=== PATIENT | female | born 1940 | race Caucasian/White ===

== ENCOUNTER 2017-06-30 19:06 | Emergency (ER) | payer OTHER ==
--- OUTSIDE RECORDS SUMMARY | 2017-06-30 19:08 | XMS REPORT | Clinical Summary ---
:1940 Author Organization [facility] Address [address] [place] [address] Care Team Providers Name Role Phone Asked, No Pcp Primary Care Provider Unavailable Allergies No Known Allergies Current Medications Prescription Sig. Disp. Refills Start Date End Date Status gabapentin Take 300 mg by Active (NEURONTIN) 300 mg mouth 2 (two) capsule times a day. lidocaine (LIDODERM) Place 1 patch Active 5 % on the skin every 12 (twelve) hours. Remove & Discard patch within 12 hours or as directed by lisinopril Take 40 mg by Active (PRINIVIL,ZESTRIL) 40 mouth daily. mg tablet clonAZEPAM (KlonoPIN) Take 0.5 mg by Active 0.5 MG tablet mouth nightly as needed for seizures. oxyCODone Take 20 mg by Active (ROXICODONE) 10 MG mouth 2 (two) tablet times a day as needed for moderate pain. pravastatin Take 40 mg by Active (PRAVACHOL) 40 MG mouth daily. tablet magnesium oxide Take 1 tablet 30 tablet 0 12/25/2016 01/24/2017 (MAG-OX) 400 mg (400 mg total) tablet by mouth daily for 30 days. furosemide (LASIX) 40 Take 1 tablet 30 tablet 0 12/25/2016 01/24/2017 mg tablet (40 mg total) by mouth daily for 30 days. aspirin 81 mg Chew 1 tablet 30 tablet 0 12/25/2016 01/24/2017 chewable tablet (81 mg total) daily for 30 days. clopidogrel (PLAVIX) Take 1 tablet 30 tablet 0 12/25/2016 01/24/2017 75 mg tablet (75 mg total) by mouth daily for 30 days. potassium chloride Take 1 capsule 30 capsule 0 12/25/2016 01/24/2017 (MICRO-K) 10 MEQ CR (10 mEq total) capsule by mouth daily for 30 days. spironolactone Take 1 tablet 30 tablet 0 12/25/2016 01/24/2017 (ALDACTONE) 25 MG (25 mg total) tablet by mouth daily for 30 days. DULoxetine (CYMBALTA) Take 1 capsule 30 capsule 0 12/25/2016 01/24/2017 30 MG capsule (30 mg total) by mouth every evening for 30 days. Active Problems Problem Noted Date Gangrene of toe of right foot 12/23/2016 Essential hypertension 12/23/2016 Chronic pain syndrome 12/23/2016 Encounters Date Type Specialty Care Team Description 12/27/2016 Orders Only Cardiovascular Pradhan, PAD (peripheral Jaja artery disease) (Primary Dx) 12/24/2016 Procedure Pass Procedural Cardiology 12/24/2016 Surgery Procedural Cardiology Zafar Vallecillo Aortagram abdomen gifty Isidro MD run off [27520 (CPT)] 12/23/2016 - Hospital Obstetrics and Juan Miguel, Peripheral vascular disease (Primary Dx); 12/25/2016 Encounter Gynecology Harper O. Sr., Mild single current episode of major depressive disorder; Gangrene of toe of right foot; Essential hypertension; Chronic pain syndrome after 06/29/2016 Social History Tobacco Use Types Packs/Day Years Used Date Former Smoker Alcohol Use Drinks/Week oz/Week Comments No Sex Assigned at Date Recorded Not on file Last Filed Vital Signs Vital Sign Reading Time Taken Blood Pressure 150/69 12/25/2016 7:55 AM CDT Pulse 52 12/25/2016 7:55 AM CDT Temperature 37.2 C (98.9 F) 12/25/2016 7:55 AM CDT Respiratory Rate 16 12/25/2016 7:55 AM CDT Oxygen Saturation 98% 12/25/2016 7:55 AM CDT Inhaled Oxygen Concentration - - Weight 57.7 kg (127 lb 1.6 oz) 12/25/2016 6:14 AM CDT Height 165.1 cm (5' 5") 12/23/2016 9:35 PM CDT Body Mass Index 21.15 12/25/2016 6:14 AM CDT Plan of Treatment Health Maintenance Due Date Last Done Comments ZOSTER VACCINE 2000 PNEUMOCOCCAL POLYSACCHARIDE VACCINE AGE 65 AND OVER 2005 PNEUMOCOCCAL-13 2005 INFLUENZA VACCINE 10/19/2017 Implants Implanted Type Area Supervisor Edging Device Expiration Model / Identifier Date Serial / Lot Catheter Supp Quick-Cross Str Tip 5fr 0.035in 150cm 3.1fr - [id number] Cardiovascular N/A: [employer] [id number] / Implanted: 12/24/2016 (Quantity not on file) Implants N/A [employer] / Results XR Foot 3+ Vw Right (12/25/2016 11:44 AM) Specimen Performing Laboratory [facility] [address] [place] [id number] Narrative EXAMINATION:XR FOOT 3VW RIGHT CLINICAL HISTORY:RIGHT foot 5th digit gangrene and 1st digit ingrown nail COMPARISON:None. IMPRESSION: There are erosive changes involving the distal head of the fifth metatarsal and base of proximal phalanx which are compatible with acute osteomyelitis. Overlying soft tissue swelling compatible with cellulitis. [facility]-[id number] Procedure Note Interface, Radiology Results Incoming - 12/25/2016 12:23 PM CDT EXAMINATION: XR FOOT 3 VW RIGHT CLINICAL HISTORY: RIGHT foot 5th digit gangrene and 1st digit ingrown nail COMPARISON: None. IMPRESSION: There are erosive changes involving the distal head of the fifth metatarsal and base of proximal phalanx which are compatible with acute osteomyelitis. Overlying soft tissue swelling compatible with cellulitis. [facility]-[id number] Estimated GFR (12/25/2016 4:25 AM)Only the most recent of2 resultswithin the time period is included. Component Value Ref Range GFR Non Af Amer 54 (A) mL/min/1.73 m2 GFR Af Amer 65 mL/min/1.73 m2 Comment: Chronic kidney disease: <60 mL/min/1.73m2 Kidney failure: <15 mL/min/1.73m2 The estimated GFR is calculated from the IDMS-traceable Modification of Diet in Renal Disease Equation. The accuracy of the calculation is poor when the creatinine is normal. Calculated values >90 mL/min/1.73m2 are not reported. This equation has not been validated in children (<18 years), women, the elderly (>70 years), or ethnic groups other than Caucasians and Americans. Specimen Performing Laboratory Plasma specimen [facility] DEPARTMENT OF PATHOLOGY AND GENOMIC MEDICINE [address] [place] [address] CBC with platelet and differential (12/25/2016 4:25 AM)Only the most recent of2 resultswithin the time period is included. Component Value Ref Range WBC 7.41 4.50 - 11.00 k/uL RBC 4.28 4.20 - 5.50 m/uL HGB 10.8 (L) 12.0 - 16.0 g/dL HCT 34.9 (L) 37.0 - 47.0 % MCV 81.5 (L) 82.0 - 100.0 fL MCH 25.2 (L) 27.0 - 34.0 pg MCHC 30.9 (L) 31.0 - 37.0 g/dL RDW - SD 47.2 37.0 - 55.0 fL MPV 11.4 8.8 - 13.2 fL Platelet count 262 150 - 400 k/uL Nucleated RBC 0.00 /100 WBC Neutrophils 61.9 39.0 - 69.0 % Lymphocytes 27.0 25.0 - 45.0 % Monocytes 9.0 0.0 - 10.0 % Eosinophils 1.5 0.0 - 5.0 % Basophils 0.3 0.0 - 1.0 % Immature granulocytes 0.3Comment: "Immature granulocytes" 0.0 - 1.0 % (promyelocytes, myelocytes, metamyelocytes) Specimen Performing Laboratory Blood [facility] DEPARTMENT OF PATHOLOGY AND GENOMIC MEDICINE [address] [place] [address] Basic metabolic panel (12/25/2016 4:25 AM)Only the most recent of2 resultswithin the time period is included. Component Value Ref Range Sodium 143 135 - 148 mEq/L Potassium 3.5 3.5 - 5.0 mEq/L Chloride 100 98 - 112 mEq/L CO2 30 24 - 31 mEq/L Anion gap 13 7 - 15 mEq/L Comment: Starting from June , anion gap calculation no longer incorporates potassium. Please note the change. BUN 17 8 - 23 mg/dL Creatinine 1.0 (H) 0.5 - 0.9 mg/dL Glucose 91 65 - 99 mg/dL Calcium 9.0 8.8 - 10.2 mg/dL Specimen Performing Laboratory Plasma specimen [facility] DEPARTMENT OF PATHOLOGY AND GENOMIC MEDICINE [address] [place] [address] POC ACT (12/24/2016 4:15 PM)Only the most recent of3 resultswithin the time period is included. Component Value Ref Range Activated clotting time, POC 117 seconds Specimen Performing Laboratory Blood Cv invasive peripheral vascular procedure (12/24/2016 4:10 PM) Specimen Performing Laboratory [address] [address] Procedure Note Zafar Vallecillo MD - 01/17/2017 2:19 PM CDT Urinalysis screen and microscopy, with reflex to culture (12/24/2016 11:45 AM) Component Value Ref Range Specimen site Clean catch Color, UA Straw Appearance, UA Clear Specific gravity, UA 1.006 1.001 - 1.035 pH, UA 5.0 5.0 - 8.5 Protein, UA Negative Negative Glucose, UA Negative Negative Ketones, UA Negative Negative Bilirubin, UA Negative Negative Blood, UA Negative Negative Nitrite, UA Negative Negative Urobilinogen, UA <2.0 <2.0 Leukocyte esterase, UA Negative Negative Epithelial cells, UA <1 /HPF WBC, UA <1 0 - 4 /HPF RBC, UA <1 0 - 2 /HPF Bacteria, UA Few None seen Yeast, UA None seen Yeast with pseudohyphae, UA None seen Hyaline casts, UA 7 /LPF Specimen Performing Laboratory Urine [facility] DEPARTMENT OF PATHOLOGY AND GENOMIC MEDICINE [address] [place] [id number] Urine culture (12/24/2016 11:45 AM) Component Value Ref Range Urine culture SEE COMMENTComment: Bacteriuria screen negative. Specimen Performing Laboratory [facility] DEPARTMENT OF PATHOLOGY AND GENOMIC MEDICINE [address] [place] [address] ECG 12 lead (12/24/2016 8:35 AM) Component Value Ref Range Ventricular rate 45 Atrial rate 45 MT interval 204 QRSD interval 162 QT interval 532 QTC interval 460 P axis 1 57 QRS axis 1 -60 T wave axis 136 EKG impression Sinus bradycardia-Possible Left atrial enlargement-Left axis deviation-Left bundle branch block-Abnormal ECG-No previous ECGs available- Specimen Performing Laboratory [facility] MUSE [address] [place] [address] Potassium level (12/24/2016 5:08 AM) Component Value Ref Range Potassium 3.7 3.5 - 5.0 mEq/L Specimen Performing Laboratory Plasma specimen [facility] DEPARTMENT OF PATHOLOGY AND [facility] [address] [place] [address] Hepatic function panel (12/24/2016 5:08 AM)Only the most recent of2 resultswithin the time period is included. Component Value Ref Range Albumin 3.0 (L) 3.5 - 5.0 g/dL Total bilirubin 0.3 0.0 - 1.2 mg/dL Bilirubin direct <0.2 0.0 - 0.3 mg/dL Alkaline phosphatase 57 35 - 104 U/L Protein 6.0 (L) 6.3 - 8.3 g/dL Comment: 4.6-7.0 g/dL 1 week 4.4-7.6 g/dL 7 months-1year5.1-7.3 g/dL 1-2 years5.6-7.5 g/dL >3 years6.0-8.0 g/dL 18-150 6.3-8.3 g/dL ALT 9 5 - 50 U/L AST 15 10 - 35 U/L Specimen Performing Laboratory Plasma specimen [facility] DEPARTMENT OF PATHOLOGY AND [facility] [address] [place] [address] Thyroid stimulating hormone (12/24/2016 1:40 AM) Component Value Ref Range TSH 2.95 0.27 - 4.20 uIU/mL Specimen Performing Laboratory Plasma specimen [facility] DEPARTMENT OF PATHOLOGY AND [address] [address] T4, free (12/24/2016 1:40 AM) Component Value Ref Range T4, free 1.4 0.9 - 1.7 ng/dL Specimen Performing Laboratory Plasma specimen [facility] DEPARTMENT OF PATHOLOGY AND [facility] [address] [place] [id number] Lipid panel (12/24/2016 1:40 AM) Component Value Ref Range Cholesterol 140 <200 mg/dL Triglycerides 97 <150 mg/dL HDL cholesterol 51 >40 mg/dL LDL cholesterol 74Comment: Result obtained by direct LDL <100 mg/dL measurement Lipid panel interpretation SeeBelow Comment: Total Cholesterol (mg/dL) <200 Desirable 315-198Asioxsoodg-lqlw >=240High Triglycerides (mg/dL) <150 Normal 267-357Jlpqckzpfj-raua 200-499High >=500Very high HDL Cholesterol (mg/dL) <40Low (male) <40Low (female) LDL Cholesterol (mg/dL) <100 Optimal 100-129Near or above optimal [id number]-zicy 160-189High >=190Very high Risk Catergories that modify LDL goals. Risk CatergoriesLDL goal (mg/dL) CHD and CHD risk equivalent<100 (10-year risk >20%) Multiple (2+) risk factors <130 (10-year risk=<20%) 0-1 risk factors <160 (<10-year risk) Defining levels of lipids in metabolic syndrome Triglycerides>=150 mg/dL HDL Cholesterol Men<40 mg/dL Women<40 mg/dL Non-HDL cholesterol is a second target for therapy in persons with high triglycerides (>=200 mg/dL) Specimen Performing Laboratory Plasma specimen [facility] DEPARTMENT OF PATHOLOGY AND GENOMIC MEDICINE [address] [place] [address] Prothrombin time with INR (12/24/2016 1:30 AM) Component Value Ref Range Prothrombin time 14.4 12.0 - 15.0 sec INR 1.1 Comment: The International Normalized Ratio (INR) is a therapeutic monitoring tool for patients who are stable on oral anticoagulant therapy. An INR of 2.0-3.0 is suggested for deep vein thrombosis/pulmonary embolism. Specimen Performing Laboratory Blood [facility] DEPARTMENT OF PATHOLOGY AND GENOMIC MEDICINE [address] [place] [id number] after 06/29/2016 Insurance Payer Benefit Plan / Group Subscriber ID Type Phone Address MEDICARE MEDICARE PART A AND B xxxxxxxxxxx Medicare [place], [place] [employer] xxxxxxxxx [address] [phone] [place], [place] [phone]
[2017-06-30 20:30] LABS: Urine Blood TRACE (NEG); Urine Glucose NEGATIVE (NEG); Urine Protein NEGATIVE (NEG)
[2017-06-30 20:41] LABS: Absolute Monocytes 0.6 K/uL (0.1-1.3); Basophils % 0.5 % (0-1.3); Eosinophils % 1.9 % (0-4.4); Lymphocytes % 29.3 % (15.3-44.8); MCH 21.4 pg (27.0-35.0); MCV 68.9 fL (80-100); MPV 9.3 fL (7.6-11.3); Monocytes % 8.5 % (3.3-12.3); RBC Red Blood Cell Count 4.64 M/uL (3.86-4.86)
[2017-06-30 20:49] LABS: Protime INR 1.2
[2017-06-30] MEDS ORDERED: FENTANYL CITR 100 MCG/2 ML ONE (20:50)
[2017-06-30 20:58] LABS: Potassium 4.2 mEq/L (3.6-5.0)
[2017-06-30 21:04] LABS: Albumin 3.2 g/dL (3.2-5.5); Bilirubin Direct 0.3 mg/dL (0-0.2); Bilirubin Total 0.8 mg/dL (0.3-1.2); Magnesium 1.8 mg/dL (1.8-2.5); Protein, Total 6.6 g/dL (6.0-8.3)
[2017-06-30 21:07] LABS: CKMB Creatine Kinase MB 3.3 ng/ml (0.3-4.0)
--- NOTE | 2017-06-30 21:14 | RAD REPORT ---
EXAM DESCRIPTION: RAD - Chest Single View - 06/30/2017 8:56 pm CLINICAL HISTORY: Cough, shortness of breath COMPARISON: June 05 TECHNIQUE: AP portable chest image was obtained 2040 hours . FINDINGS: No peripheral mass consolidation. Cardiomegaly is present with mild vascular engorgement. Interstitial markings are mildly prominent. No consolidation or mass. Sternotomy wires are in place. No measurable pleural effusion and no pneumothorax. No gross bony abnormality seen. No acute aortic f indings suspected. IMPRESSION: Mild CHF/volume overload similar to comparison.
[2017-06-30 21:59] LABS: Blood Morphology Comment NOTED (NOT SEEN); Hypochromasia 1+; Platelet Estimate ADEQ; Urine White Blood Cell Casts OK
--- NOTE | 2017-06-30 23:00 | EDPHYS ---
Physician Documentation [facility] Name: Nash Burnette Age: 76 yrs Sex: Female : 1940 Arrival Date: 06/30/2017 Time: 19:10 Bed 13 Private MD: ED Physician Yonis Avendano HPI: 06/30 20:19 This 76 yrs old Female presents to ER via Wheelchair with complaints of Ankle snw Swelling. 20:19 The patient presents with swelling, tenderness. The complaints affect the left ankle, snw right ankle. Onset: The symptoms/episode began/occurred gradually, and became persistent. Associated signs and symptoms: Pertinent positives: calf tenderness. Severity of symptoms: in the emergency department the symptoms are unchanged. It is unknown whether or not the patient has had similar symptoms in the past. The patient has not recently seen a physician, the patient's primary care provider is Dr. Dr. Veloz. Pt started taking 80mg Lasix on her own. Historical: - Allergies: 19:32 Morphine; aj - Home Meds: 19:32 carvedilol 3.125 mg Oral tab 1 tab 2 times per day [Active]; clonazepam 0.5 mg Oral tab aj nightly [Active]; gabapentin 400 mg Oral cap 1 cap 3 times per day [Active]; Lasix 40 mg Oral tab 1 tab 2 times per day [Active]; levothyroxine 50 mcg tab 1 tab once daily [Active]; lisinopril 40 mg Oral tab 1 tab once daily [Active]; Plavix 75 mg Oral tab 1 tab once daily [Active]; Nitrostat 0.3 mg SL subl as needed [Active]; simvastatin 40 mg Oral tab 1 tab once daily [Active]; spironolactone 25 mg Oral tab 1 tab once daily [Active]; oxycodone 15 mg Oral TR12 1 tab every 12 hours [Active]; - PMHx: 19:32 CHF; Hypertension; Chronic pain; Bowel obstruction; aj 19:34 Restless Leg Syndrome; aj - PSHx: 19:32 CABG; Back SX; aj - Immunization history:: Adult Immunizations up to date. - Social history:: Smoking status: Patient uses tobacco products, smokes one-half pack cigarettes per day. ROS: 20:19 Constitutional: Negative for fever, chills, and weight loss, Eyes: Negative for injury, snw pain, redness, and discharge, ENT: Negative for injury, pain, and discharge, Neck: Negative for injury, pain, and swelling, Cardiovascular: Negative for chest pain, palpitations, and edema, Respiratory: Negative for shortness of breath, cough, wheezing, and pleuritic chest pain, Abdomen/GI: Negative for abdominal pain, nausea, vomiting, diarrhea, and constipation, Back: Negative for injury and pain, : Negative for injury, bleeding, discharge, and swelling, Skin: Negative for injury, rash, and discoloration, Neuro: Negative for headache, weakness, numbness, tingling, and seizure. 20:19 MS/extremity: Positive for pain, swelling, tenderness, of the bilateral lower extremities. Exam: 20:16 Constitutional: This is a well developed, well nourished patient who is awake, alert, snw and in no acute distress. Head/Face: Normocephalic, atraumatic. Eyes: Pupils equal round and reactive to light, extra-ocular motions intact. Lids and lashes normal. Conjunctiva and sclera are non-icteric and not injected. Cornea within normal limits. Periorbital areas with no swelling, redness, or edema. ENT: Nares patent. No nasal discharge, no septal abnormalities noted. Tympanic membranes are normal and external auditory canals are clear. Oropharynx with no redness, swelling, or masses, exudates, or evidence of obstruction, uvula midline. Mucous membranes moist. Neck: Trachea midline, no thyromegaly or masses palpated, and no cervical lymphadenopathy. Supple, full range of motion without nuchal rigidity, or vertebral point tenderness. No Meningismus. Chest/axilla: Normal chest wall appearance and motion. Nontender with no deformity. No lesions are appreciated. Back: No spinal tenderness. No costovertebral tenderness. Full range of motion. Neuro: Awake and alert, GCS 15, oriented to person, place, time, and situation. Cranial nerves II-XII grossly intact. Motor strength 5/5 in all extremities. Sensory grossly intact. Cerebellar exam normal. Normal gait. Psych: Awake, alert, with orientation to person, place and time. Behavior, mood, and affect are within normal limits. 20:16 Cardiovascular: Rate: normal, Rhythm: regular, Pulses: no pulse deficits are appreciated, Heart sounds: rub, Edema: 3+ edema to level of left ankle, left foot, left toes, right ankle, right foot and right toes, pedal edema, ankle edema, JVD: is noted bilaterally. 20:16 Respiratory: mild respiratory distress is noted, Respirations: shallow respirations, tachypnea, Breath sounds: rales, are located in both bases, decreased breath sounds. 20:16 Abdomen/GI: Inspection: obese scar(s), are noted in the suprapubic area, right lower quadrant and left lower quadrant, Bowel sounds: normal, Palpation: nontender. Vital Signs: 19:34 BP 142 / 88; Pulse 85; Resp 26; Temp 98.4; Pulse Ox 100% on R/A; Weight 63.5 kg; Height aj 5 ft. 3 in. (160.02 cm); Pain 10/10; 20:55 BP 142 / 86; Pulse 75; Resp 16; Pulse Ox 100% on 2 lpm NC; Pain 0/10; ao 22:06 BP 149 / 78; Pulse 77; Resp 24; Pulse Ox 100% on 2 lpm NC; Pain 0/10; ao 19:34 Body Mass Index 24.80 (63.50 kg, 160.02 cm) aj MDM: 19:37 Patient medically screened. snw 22:59 Data reviewed: vital signs, nurses notes. Data interpreted: Pulse oximetry: on room air snw is 88 %. Interpretation: hypoxia. Counseling: I had a detailed discussion with the patient and/or guardian regarding: the historical points, exam findings, and any diagnostic results supporting the discharge/admit diagnosis, the presence of at least one elevated blood pressure reading (>120/80) during this emergency department visit, lab results, radiology results, the need for further work-up and treatment in the hospital. Physician consultation: Marvin Veloz MD was called at 22:00, was contacted at 22:00, regarding admission, Dr. Veloz is no longer pt's PCP - Redd Alex, will call Dr. Weiss (Hospitalist). 23:00 Physician consultation: Miguel Weiss MD was called at 23:00, was contacted at 23:00, snw regarding admission, to the telemetry unit. 06/30 20:16 Order name: Basic Metabolic Panel; Complete Time: 21:08 snw 06/30 20:16 Order name: BNP; Complete Time: 21:59 snw 06/30 20:16 Order name: CBC with Diff; Complete Time: 22:12 snw 06/30 20:16 Order name: Ckmb; Complete Time: 21:08 snw 06/30 20:16 Order name: CPK; Complete Time: 21:08 snw 06/30 20:16 Order name: LFT's; Complete Time: 21:08 snw 06/30 20:16 Order name: Magnesium; Complete Time: 21:08 snw 06/30 20:16 Order name: PT-INR; Complete Time: 20:52 snw 06/30 20:16 Order name: Ptt, Activated; Complete Time: 20:52 snw 06/30 20:16 Order name: Troponin (emerg Dept Use Only); Complete Time: 21:30 snw 06/30 20:16 Order name: XRAY Chest (1 view); Complete Time: 21:15 snw 06/30 20:16 Order name: US Extremity Venou Bilateral snw 06/30 20:27 Order name: Urine Dipstick--Ancillary (enter results); Complete Time: 20:31 em1 06/30 21:59 Order name: CBC Smear Scan; Complete Time: 22:12 EDMS 06/30 20:16 Order name: EKG; Complete Time: 20:16 snw 06/30 20:16 Order name: Cardiac monitoring; Complete Time: 21:12 snw 06/30 20:16 Order name: EKG - Nurse/Tech; Complete Time: 20:20 snw 06/30 20:16 Order name: IV Saline Lock; Complete Time: 20:20 snw 06/30 20:16 Order name: Labs collected and sent; Complete Time: 20:20 snw 06/30 20:16 Order name: O2 Per Protocol; Complete Time: 20:20 snw 06/30 20:16 Order name: O2 Sat Monitoring; Complete Time: 20:20 snw 06/30 20:16 Order name: Urine Dipstick-Ancillary (obtain specimen); Complete Time: 20:29 snw Administered Medications: 20:53 Drug: fentaNYL (PF) 25 mcg Route: IVP; Site: right antecubital; ao 21:30 Follow up: Response: Medication administered at discharge. ao Disposition: 04/13 07:05 Co-signature as Attending Physician, Yonis MARSH I agree with the assessment and [facility] plan of care. Disposition: 07/01/17 00:01 Patient has left against medical advice. - Patients states they are going to Home. - Condition is Stable. Signatures: Dispatcher [employer] Lissette Townsend RN Susan Wilder, RN Yonis Salazar MD MD cha Therrien, Shelly, [facility] NURSE-C [facility] NURSE-Csnw Arie Valiente RN HUGO ao
--- NOTE | 2017-06-30 23:00 | ER ---
Nurse's Notes [facility] Name: Nash Burnette Age: 76 yrs Sex: Female : 1940 Arrival Date: 06/30/2017 Time: 19:10 Bed 13 Private MD: Diagnosis: Presentation: 06/30 19:28 Presenting complaint: Patient states: Bilateral leg and feet swelling that is chronic. aj Patient reports pain is not helped by her Oxycodone she is given by pain management. Transition of care: patient was not received from another setting of care. Onset of symptoms was May 2017. Care prior to arrival: None. 19:28 Method Of Arrival: Wheelchair aj 19:28 Acuity: HELADIO 3 aj Triage Assessment: 19:32 General: Appears in no apparent distress. uncomfortable, Behavior is calm, cooperative, aj appropriate for age. Pain: Complains of pain in right leg and left leg. Neuro: Level of Consciousness is awake, alert, obeys commands, Oriented to person, place, time, situation. Cardiovascular: Denies chest pain. Cardiovascular: Edema is 3+ to left ankle, left foot, left toes, right ankle, right foot and right toes. Respiratory: Airway is patent Respiratory effort is even, unlabored, Respiratory pattern is tachypnea. Derm: Skin is intact, is healthy with good turgor, Skin is pink, warm \T\ dry. normal. Musculoskeletal:. Historical: - Allergies: 19:32 Morphine; aj - Home Meds: 19:32 carvedilol 3.125 mg Oral tab 1 tab 2 times per day [Active]; clonazepam 0.5 mg Oral tab aj nightly [Active]; gabapentin 400 mg Oral cap 1 cap 3 times per day [Active]; Lasix 40 mg Oral tab 1 tab 2 times per day [Active]; levothyroxine 50 mcg tab 1 tab once daily [Active]; lisinopril 40 mg Oral tab 1 tab once daily [Active]; Plavix 75 mg Oral tab 1 tab once daily [Active]; Nitrostat 0.3 mg SL subl as needed [Active]; simvastatin 40 mg Oral tab 1 tab once daily [Active]; spironolactone 25 mg Oral tab 1 tab once daily [Active]; oxycodone 15 mg Oral TR12 1 tab every 12 hours [Active]; - PMHx: 19:32 CHF; Hypertension; Chronic pain; Bowel obstruction; aj 19:34 Restless Leg Syndrome; aj - PSHx: 19:32 CABG; Back SX; aj - Immunization history:: Adult Immunizations up to date. - Social history:: Smoking status: Patient uses tobacco products, smokes one-half pack cigarettes per day. Screenin:43 Abuse screen: Denies threats or abuse. Denies injuries from another. Nutritional ao screening: No deficits noted. Tuberculosis screening: No symptoms or risk factors identified. Fall Risk Ambulatory Aid- Crutches/Cane/Walker (15 pts). Assessment: 19:45 General: Appears in no apparent distress. comfortable, Behavior is calm, cooperative, ao appropriate for age. Pain: Complains of pain in right leg and left leg Pain currently is 8 out of 10 on a pain scale. Neuro: Level of Consciousness is awake, alert, obeys commands, Oriented to person, place, time, situation, Appropriate for age Moves all extremities. Speech is normal, Facial symmetry appears normal. Cardiovascular: Heart tones S1 S2. Respiratory: Airway is patent Respiratory effort is even, unlabored, Respiratory pattern is regular. GI: Abdomen is obese. : No signs and/or symptoms were reported regarding the genitourinary system. EENT: No signs and/or symptoms were reported regarding the EENT system. Derm: No signs and/or symptoms reported regarding the dermatologic system. Musculoskeletal: Range of motion: limited in all extremities. 20:18 Reassessment: Patient received o2 by NC. ao 20:45 Reassessment: Patient appears in no apparent distress at this time. Patient and/or ao family updated on plan of care and expected duration. Pain level reassessed. Patient is alert, oriented x 3, equal unlabored respirations, skin warm/dry/pink. Waiting on lab work results. 21:27 Reassessment: Received a lab alert trop 0.96. Claudia HEALTH AND HUMAN PERFORMANCE PROFESSOR was notified. ao 22:06 Reassessment: Patient appears in no apparent distress at this time. Patient and/or ao family updated on plan of care and expected duration. Pain level reassessed. Patient is alert, oriented x 3, equal unlabored respirations, skin warm/dry/pink. Patient states that she feel better and would like to go home. 23:10 Reassessment: Patient appears in no apparent distress at this time. Patient and/or ao family updated on plan of care and expected duration. Pain level reassessed. Patient is alert, oriented x 3, equal unlabored respirations, skin warm/dry/pink. Waiting on room assigment. 23:30 Reassessment: RYLEE Taylor at bedside talking to patient. Patient want to leave AMA. ao 07/01 00:00 Reassessment: Patient left AMA before getting admitted. AMA form was signed and patient ao was instructed to comeback to the ER if any problems occur. Vital Signs: 06/30 19:34 BP 142 / 88; Pulse 85; Resp 26; Temp 98.4; Pulse Ox 100% on R/A; Weight 63.5 kg; Height aj 5 ft. 3 in. (160.02 cm); Pain 10/10; 20:55 BP 142 / 86; Pulse 75; Resp 16; Pulse Ox 100% on 2 lpm NC; Pain 0/10; ao 22:06 BP 149 / 78; Pulse 77; Resp 24; Pulse Ox 100% on 2 lpm NC; Pain 0/10; ao 19:34 Body Mass Index 24.80 (63.50 kg, 160.02 cm) aj ED Course: 19:10 Patient arrived in ED. al2 19:30 Triage completed. aj 19:34 Arm band placed on right wrist. Patient placed. aj 19:37 Hannah Taylor FNP-C is PHCP. snw 19:37 Yonis Avendano MD is Attending Physician. snw 20:15 Inserted saline lock: 22 gauge in right antecubital area, using aseptic technique. ao ,using aseptic technique. HUGO Law Blood collected. 20:17 Arie Valiente, RN is Primary Nurse. ao 20:28 Basic Metabolic Panel Sent. jb5 20:28 BNP Sent. jb5 20:28 CBC with Diff Sent. jb5 20:29 Ckmb Sent. jb5 20:29 CPK Sent. jb5 20:29 LFT's Sent. jb5 20:29 Magnesium Sent. jb5 20:29 PT-INR Sent. jb5 20:29 Ptt, Activated Sent. jb5 20:29 Troponin (emerg Dept Use Only) Sent. jb5 20:29 XRAY Chest (1 view) Sent. jb5 20:55 X-ray completed. Portable x-ray completed in exam room. Patient tolerated procedure kc2 well. 20:56 XRAY Chest (1 view) In Process Unspecified. EDMS 21:16 US Extremity Venou Bilateral In Process Unspecified. EDMS 21:16 Ultrasound completed. Patient tolerated poorly. cy 22:58 Miguel Weiss MD is Hospitalizing Provider. snw 23:43 No provider procedures requiring assistance completed. IV discontinued, intact, ao bleeding controlled, No redness/swelling at site. Pressure dressing applied. 23:45 Patient has correct armband on for positive identification. ao Administered Medications: 20:53 Drug: fentaNYL (PF) 25 mcg Route: IVP; Site: right antecubital; ao 21:30 Follow up: Response: Medication administered at discharge. ao Outcome: 22:59 Decision to Hospitalize by Provider. snw 23:44 AMA AMA form signed ao 23:44 Condition: stable 23:44 Discharge instructions given to patient, Instructed on Patient left AMA. Patient has been advised to comeback to the ER if any problem occur. 07/01 00:01 Patient left the ED. ao Signatures: Dispatcher [employer] Susan Givens, RN RN Hannah Marino, INTERNAL COMBUSTION ENGINE SUBASSEMBLER-C INTERNAL COMBUSTION ENGINE SUBASSEMBLER-Csnw Arie Valiente, RN Celeste Kilpatrick kc2 Tabatha Gutierrez jbShira Kaufman Angelica al2
--- NOTE | 2017-07-01 08:19 | RAD REPORT ---
EXAM DESCRIPTION: VAS - Extrem Venous W Compress Bladimir - 06/30/2017 9:16 pm CLINICAL HISTORY: Leg pain and swelling COMPARISON: DVT study June 06 TECHNIQUE: Real-time sonographic evaluation of the bilateral lower extremity deep venous systems was performed. FINDINGS: Exam was limited. Patient was moving throughout the examination and was in significant cezar n. Normal compressibility, flow augmentation, phasic flow and spontaneous flow are identified in the lef t and right lower extremity deep venous systems. No filling defects within the deep venous system of either lower extremity. Thrombus is again identified in the left greater saphenous vein. This was difficult to fully evaluate due to the patient's pain and motion. Pattern is generally similar to the May examination with no evidence to suspect propagation. Interstitial edema pattern is seen with no focal or drainable fluid collection. IMPRESSION: No DVT in either lower extremity. No change to the partially thrombosed left greater saphenous vein. Pattern is similar to the June 06 study with no propagation suspected.
--- NOTE | 2017-07-03 22:48 | EKG ---
Test Date: 2017-06-30 Test Time: 19:49:44 [employer] Crewmember: COLIN MEASUREMENT RESULTS: Intervals: Rate: 72 MD: 176 QRSD: 156 QT: 442 QTc: 483 [place]: P: 54 MD: 176 QRS: 141 T: 26 INTERPRETIVE STATEMENTS: Normal sinus rhythm Possible Left atrial enlargement Left bundle branch block Abnormal ECG Compared to ECG 06/05/2017 18:58:06 Left-axis deviation no longer present Electronically Signed On 07-03-17 22:47:34 CDT by Gregor Rodrigues
== END 2017-06-30 23:58 | disposition left against medical advice (07) ==
LOC: ER 19:06 → UNDOADMOB 23:06 → ERHOLD 23:06 → UNDODISOB 23:58 → ER 23:58
DX: M25.473 Effusion, unspecified ankle (principal); I11.0 Hypertensive heart disease with heart failure; I50.9 Heart failure, unspecified; F17.210 Nicotine dependence, cigarettes, uncomplicated; Z79.01 Long term (current) use of anticoagulants; Z88.5 Allergy status to narcotic agent; Z95.1 Presence of aortocoronary bypass graft
CPT/HCPCS: 36415; 71045; 80048; 80076; 81003; 82550; 82553; 83735; 83880; 84484; 85025; 85610; 85730; 93005; 93970; 96374; 99284; G0378; J3010

== ENCOUNTER 2017-07-03 00:06 | Inpatient (IN) | payer OTHER ==
--- OUTSIDE RECORDS SUMMARY | 2017-07-03 00:09 | XMS REPORT | Clinical Summary ---
:1940 Author Organization [facility] Address [address] [place] [address] Care Team Providers Name Role Phone Asked, [...] Aortagram abdomen gifty Isidro MD run off [26280 (CPT)] 12/23/2016 - Hospital Obstetrics and Juan Miguel, Peripheral vascular disease (Primary Dx); 12/25/2016 Encounter Gynecology Sidney O. Sr., Mild single current episode of major depressive disorder; Gangrene of toe of right foot; Essential hypertension; Chronic pain syndrome after 07/02/2016 Social History Tobacco Use Types Packs/Day Years [...] INFLUENZA VACCINE 10/19/2017 Implants Implanted Type Area Retention Representative Device Expiration Model / Identifier Date Serial / Lot Catheter Supp Quick-Cross Str Tip 5fr 0.035in 150cm 3.1fr - [id number] Cardiovascular N/A: [employer] [id number] / Implanted: 12/24/2016 (Quantity not on file) Implants [employer] / Results XR Foot 3+ Vw Right (12/25/2016 11:44 AM) Specimen Performing Laboratory [facility] [address] [place] [address] Narrative EXAMINATION:XR FOOT 3VW RIGHT CLINICAL HISTORY:RIGHT foot 5th digit gangrene and 1st digit ingrown nail COMPARISON:None. IMPRESSION: There are erosive changes involving the distal head of the fifth metatarsal and base of proximal phalanx which are compatible with acute osteomyelitis. Overlying soft tissue swelling compatible with cellulitis. [facility]-[id number] Procedure Note Interface, Radiology Results Incoming - 12/25/2016 12:23 PM CDT EXAMINATION: XR FOOT 3 VW RIGHT CLINICAL HISTORY: RIGHT foot 5th digit gangrene and 1st digit ingrown nail COMPARISON: None. IMPRESSION: There are erosive changes involving the distal head of the fifth metatarsal and base of proximal phalanx which are compatible with acute osteomyelitis. Overlying soft tissue swelling compatible with cellulitis. [facility]-[id number] Estimated GFR (12/25/2016 4:25 AM)Only the most [...] and Americans. Specimen Performing Laboratory Plasma specimen [facility] DEPARTMENT OF PATHOLOGY AND GENOMIC MEDICINE [address] [place] [address] CBC with platelet and differential (12/25/2016 4:25 [...] (promyelocytes, myelocytes, metamyelocytes) Specimen Performing Laboratory Blood [facility]PARTMENT OF PATHOLOGY AND GENOMIC MEDICINE [address] [place] [address] Basic metabolic panel (12/25/2016 4:25 AM)Only the [...] 10.2 mg/dL Specimen Performing Laboratory Plasma specimen [facility]PARTMENT OF PATHOLOGY AND GENOMIC MEDICINE [address] [place] [address] POC ACT (12/24/2016 4:15 PM)Only the most recent of3 resultswithin the time period is included. Component Value Ref Range Activated clotting time, POC 117 seconds Specimen Performing Laboratory Blood Cv invasive peripheral vascular procedure (12/24/2016 4:10 PM) Specimen Performing Laboratory [address] [address] Procedure Note Zafar Vallecillo MD - 01/17/2017 [...] UA 7 /LPF Specimen Performing Laboratory Urine [facility] DEPARTMENT OF PATHOLOGY AND GENOMIC MEDICINE [address] [place] [address] Urine culture (12/24/2016 11:45 AM) Component Value Ref Range Urine culture SEE COMMENTComment: Bacteriuria screen negative. Specimen Performing Laboratory [facility]PARTMENT OF PATHOLOGY AND GENOMIC MEDICINE [address] [place] [address] ECG 12 lead (12/24/2016 8:35 AM) Component Value Ref Range Ventricular rate 45 Atrial rate 45 WV interval 204 QRSD interval 162 QT interval 532 QTC interval 460 P axis 1 57 QRS axis 1 -60 T wave axis 136 EKG impression Sinus bradycardia-Possible Left atrial enlargement-Left axis deviation-Left bundle branch block-Abnormal ECG-No previous ECGs available- Specimen Performing Laboratory [facility] MUSE [address] [place] [address] Potassium level (12/24/2016 5:08 AM) Component Value Ref Range Potassium 3.7 3.5 - 5.0 mEq/L Specimen Performing Laboratory Plasma specimen [facility] DEPARTMENT OF PATHOLOGY AND [facility] [address] [place] [address] Hepatic function panel (12/24/2016 5:08 AM)Only the [...] 35 U/L Specimen Performing Laboratory Plasma specimen [facility] DEPARTMENT OF PATHOLOGY AND [facility] [address] [place] [address] Thyroid stimulating hormone (12/24/2016 1:40 AM) Component Value Ref Range TSH 2.95 0.27 - 4.20 uIU/mL Specimen Performing Laboratory Plasma specimen [facility] DEPARTMENT OF PATHOLOGY AND [address] [address] T4, free (12/24/2016 1:40 AM) Component Value Ref Range T4, free 1.4 0.9 - 1.7 ng/dL Specimen Performing Laboratory Plasma specimen [facility] DEPARTMENT OF PATHOLOGY AND [facility] [address] [place] [address] Lipid panel (12/24/2016 1:40 AM) Component Value Ref Range Cholesterol 140 <200 mg/dL Triglycerides 97 <150 mg/dL HDL cholesterol 51 >40 mg/dL LDL cholesterol 74Comment: Result obtained by direct LDL <100 mg/dL measurement Lipid panel interpretation SeeBelow Comment: Total Cholesterol (mg/dL) <200 Desirable [id number]-afmz >=240High Triglycerides (mg/dL) <150 Normal 601-989Wjrtvabdrw-cmos 200-499High >=500Very high HDL Cholesterol (mg/dL) <40Low (male) <40Low (female) LDL Cholesterol (mg/dL) <100 Optimal 100-129Near or above optimal [phone]-rmbz 160-189High >=190Very high Risk Catergories that modify [...] (>=200 mg/dL) Specimen Performing Laboratory Plasma specimen [facility] DEPARTMENT OF PATHOLOGY AND GENOMIC MEDICINE [address] [place] [address] Prothrombin time with INR (12/24/2016 1:30 AM) Component Value Ref Range Prothrombin time 14.4 12.0 - 15.0 sec INR 1.1 Comment: The International Normalized Ratio (INR) is a therapeutic monitoring tool for patients who are stable on oral anticoagulant therapy. An INR of 2.0-3.0 is suggested for deep vein thrombosis/pulmonary embolism. Specimen Performing Laboratory Blood [facility] DEPARTMENT OF PATHOLOGY AND GENOMIC MEDICINE [address] [place] [address] after 07/02/2016 Insurance Payer Benefit Plan / Group Subscriber ID Type Phone Address MEDICARE MEDICARE PART A AND B xxxxxxxxxxx Medicare [place], [place] [employer] xxxxxxxxx Commercial Guarantor Name Account Type Relation to Date of Phone Billing Patient Address MICHELLE KATHLEEN Personal/Family Spouse 1940 Home: [address] [place] [address] dr RAY [phone] [place], [place] [address]
[2017-07-03] MEDS ORDERED: FUROSEMIDE 100 MG/10 ML VIAL IV ONE (00:49)
[2017-07-03 01:14] LABS: Protime INR 1.2
[2017-07-03 01:15] LABS: Potassium 3.6 mEq/L (3.6-5.0)
[2017-07-03 01:16] LABS: Absolute Lymphocytes (CBC) 1.7 K/uL (0.7-4.9); Absolute Monocytes 0.6 K/uL (0.1-1.3); Absolute Neutrophil 4.3 K/uL (1.8-8.0); Basophils % 0.8 % (0-1.3); Hematocrit 31.7 % (36.0-45.0); Lymphocytes % 24.6 % (15.3-44.8); MCH 20.6 pg (27.0-35.0); MCV 69.7 fL (80-100); MPV 9.3 fL (7.6-11.3); Monocytes % 9.4 % (3.3-12.3); RBC Red Blood Cell Count 4.55 M/uL (3.86-4.86)
[2017-07-03] MEDS ORDERED: DIPHENHYDRAMINE 50 MG/ML VIAL ONE (01:31)
--- NOTE | 2017-07-03 01:33 | EDPHYS ---
Physician Documentation [facility] Name: Nash Burnette Age: 76 yrs Sex: Female : 1940 Arrival Date: 07/03/2017 Time: 00:07 Bed 6 Private MD: ED Physician Jam De La Cruz HPI: 07/03 02:00 This 76 yrs old Female presents to ER via Ambulatory with complaints of gs Abdominal Pain, Back Pain, Feet Swelling. 02:00 The patient presents with swelling. The complaints affect the right leg and left leg. gs Onset: The symptoms/episode began/occurred 1 week(s) ago. Modifying factors: The symptoms are alleviated by nothing. the symptoms are aggravated by nothing. Associated signs and symptoms: Pertinent positives: sob, also chronic back and abdominal pain. Severity of symptoms: At their worst the symptoms were moderate, in the emergency department the symptoms are unchanged. The patient has experienced similar episodes in the past, several times. The patient has been recently seen at the [facility] Emergency Department, this week, left ama yest. Historical: - Allergies: 00:15 Morphine; tl2 - Home Meds: 00:15 carvedilol 3.125 mg Oral tab 1 tab 2 times per day [Active]; clonazepam 0.5 mg Oral tab tl2 nightly [Active]; gabapentin 400 mg Oral cap 1 cap 3 times per day [Active]; Lasix 40 mg Oral tab 1 tab 2 times per day [Active]; levothyroxine 50 mcg tab 1 tab once daily [Active]; lisinopril 40 mg Oral tab 1 tab once daily [Active]; Nitrostat 0.3 mg SL subl as needed [Active]; oxycodone 15 mg Oral TR12 1 tab every 12 hours [Active]; Plavix 75 mg Oral tab 1 tab once daily [Active]; simvastatin 40 mg Oral tab 1 tab once daily [Active]; spironolactone 25 mg Oral tab 1 tab once daily [Active]; - PMHx: 00:15 bowel obstruction; CHF; Chronic pain; Hypertension; restless leg syndrome; tl2 - Immunization history:: Adult Immunizations up to date. - Social history:: Smoking status: Patient/guardian denies using tobacco. ROS: 02:00 Unable to obtain ROS due to baseline dementia. gs Exam: 02:00 Head/Face: Normocephalic, atraumatic. Eyes: Pupils equal round and reactive to light, gs extra-ocular motions intact. Lids and lashes normal. Conjunctiva and sclera are non-icteric and not injected. Cornea within normal limits. Periorbital areas with no swelling, redness, or edema. ENT: Nares patent. No nasal discharge, no septal abnormalities noted. Tympanic membranes are normal and external auditory canals are clear. Oropharynx with no redness, swelling, or masses, exudates, or evidence of obstruction, uvula midline. Mucous membranes moist. Neck: Trachea midline, no thyromegaly or masses palpated, and no cervical lymphadenopathy. Supple, full range of motion without nuchal rigidity, or vertebral point tenderness. No Meningismus. Chest/axilla: Normal chest wall appearance and motion. Nontender with no deformity. No lesions are appreciated. Cardiovascular: Regular rate and rhythm with a normal S1 and S2. No gallops, murmurs, or rubs. Normal PMI, no JVD. No pulse deficits. Respiratory: Lungs have equal breath sounds bilaterally, clear to auscultation and percussion. No rales, rhonchi or wheezes noted. No increased work of breathing, no retractions or nasal flaring. Abdomen/GI: Soft, non-tender, with normal bowel sounds. No distension or tympany. No guarding or rebound. No evidence of tenderness throughout. Back: No spinal tenderness. No costovertebral tenderness. Full range of motion. 02:00 Skin: Warm, dry with normal turgor. Normal color with no rashes, no lesions, and no evidence of cellulitis. MS/ Extremity: Pulses equal, no cyanosis. Neurovascular intact. Full, normal range of motion. Neuro: Awake and alert, GCS 15, oriented to person, place, time, and situation. Cranial nerves II-XII grossly intact. Motor strength 5/5 in all extremities. Sensory grossly intact. Cerebellar exam normal. Normal gait. 02:00 Constitutional: The patient appears alert, awake. 02:00 Cardiovascular: Edema: 3+ edema to level of left midcalf, left ankle, right midcalf and right ankle. 02:00 ECG was reviewed by the Attending Physician. Vital Signs: 00:23 BP 142 / 67; Pulse 68; Resp 17; Temp 98.3; Pulse Ox 100% ; bp 01:48 BP 128 / 74; Pulse 81; Resp 13; Pulse Ox 100% ; bp 02:33 Pulse 86; Resp 20; Pulse Ox 95% ; bp 02:33 PT RESISTING BP MEASUREMENT bp MDM: 00:22 Patient medically screened. gs 02:00 Differential diagnosis: chf,mi,pedal edema,renal failure. Data reviewed: vital signs, gs nurses notes, old medical records, and as a result, I will admit patient. 07/03 01:00 Order name: Basic Metabolic Panel; Complete Time: 01:55 EDMS 07/03 01:00 Order name: Troponin (Emerg Dept Use Only); Complete Time: 01:55 EDMS 07/03 00:29 Order name: EKG; Complete Time: 01:03 gs 07/03 01:00 Order name: CBC with Automated Diff EDMS 07/03 01:00 Order name: Protime (+INR); Complete Time: 01:55 EDMS 07/03 01:19 Order name: Manual Differential EDMS 07/03 00:29 Order name: Cardiac monitoring; Complete Time: 00:37 gs 07/03 00:29 Order name: EKG - Nurse/Tech; Complete Time: 00:52 gs 07/03 00:29 Order name: IV Saline Lock; Complete Time: 00:38 07/03 00:29 Order name: Labs collected and sent; Complete Time: 00:38 gs 07/03 00:29 Order name: O2 Per Protocol; Complete Time: 00:38 gs 07/03 00:29 Order name: O2 Sat Monitoring; Complete Time: 00:38 gs EC:00 Rate is 68 beats/min. Rhythm is regular. RI interval is normal. QRS interval is normal. gs T waves are Normal. No ST changes noted. Clinical impression: NSR w/ Non-specific ST/T Changes. Administered Medications: 00:53 Drug: Lasix 60 mg Route: IVP; Site: right forearm; bp 01:35 Follow up: Response: No adverse reaction bp 01:36 Drug: Benadryl 25 mg Route: IVP; Site: right antecubital; bp 01:49 Follow up: Response: No change in condition bp 02:04 Drug: HALdol (as decanoate) 2.5 mg Route: IM; Site: right deltoid; bp 02:04 Follow up: Response: No adverse reaction; No change in condition bp 02:04 Drug: D50W 25 ml Route: IVP; Site: right antecubital; bp 02:04 Follow up: Response: No adverse reaction bp Disposition: 07/03/17 01:32 Hospitalization ordered by Lev Lopez for Observation. Preliminary diagnosis is Acute combined systolic (congestive) and diastolic (congestive) heart failure. - Bed requested for Telemetry/MedSurg (observation). - Status is Observation. bp - Condition is Stable. - Problem is an acute exacerbation. - Symptoms have improved. UTI on Admission? No Critical care time excluding procedures: 02:00 Critical care time: Bedside Care: 10 minutes, Consultation: 10 minutes, Family gs Intervention: 10 minutes. Total time: 30 minutes Signatures: Dispatcher [employer] Radha Morocho, RN RN Gerri Soliman RN RN tl2 Jam De La Cruz MD MD gs Peltier, Brian, RN RN bp Corrections: (The following items were deleted from the chart) 01:44 01:03 BASIC METABOLIC PANEL+C.LAB.BRZ ordered. EDMS EDMS 01:44 01:03 CBC+H.LAB.BRZ ordered. EDMS EDMS 01:44 01:03 PROTIME (+INR)+COAG.LAB.BRZ ordered. EDMS EDMS 01:44 01:03 TROPONIN (EMERG DEPT USE ONLY)+C.LAB.BRZ ordered. EDMS EDMS
--- NOTE | 2017-07-03 01:33 | ER ---
Nurse's Notes [facility] Name: Nash Burnette Age: 76 yrs Sex: Female : 1940 Arrival Date: 07/03/2017 Time: 00:07 Bed 6 Private MD: Diagnosis: Acute combined systolic (congestive) and diastolic (congestive) heart failure Presentation: 07/03 00:20 Presenting complaint: Child states: HER LEGS AND HER STOMACH ARE MORE SWOLLEN. bp Transition of care: patient was not received from another setting of care. Onset of symptoms was June 26, 2017. Care prior to arrival: None. 00:20 Method Of Arrival: Ambulatory bp 00:20 Acuity: HELADIO 3 bp Triage Assessment: 00:20 General: Appears distressed, comfortable, Behavior is cooperative, appropriate for age, bp anxious. Pain: Complains of pain in abdomen, right leg and left leg. EENT: No deficits noted. Neuro: Level of Consciousness is awake, alert, obeys commands, Oriented to person, place, time, situation, Appropriate for age. Cardiovascular: Rhythm is sinus rhythm. Respiratory: Airway is patent Respiratory effort is even, unlabored, Respiratory pattern is regular, symmetrical. GI: Abdomen is POST SURGICAL, TISSUE MACERATION 2/2 FISTULA DRAINAGE. : No signs and/or symptoms were reported regarding the genitourinary system. Derm: No deficits noted. Musculoskeletal: Circulation, motion, and sensation intact. Range of motion: intact in all extremities. Historical: - Allergies: 00:15 Morphine; tl2 - Home Meds: 00:15 carvedilol 3.125 mg Oral tab 1 tab 2 times per day [Active]; clonazepam 0.5 mg Oral tab tl2 nightly [Active]; gabapentin 400 mg Oral cap 1 cap 3 times per day [Active]; Lasix 40 mg Oral tab 1 tab 2 times per day [Active]; levothyroxine 50 mcg tab 1 tab once daily [Active]; lisinopril 40 mg Oral tab 1 tab once daily [Active]; Nitrostat 0.3 mg SL subl as needed [Active]; oxycodone 15 mg Oral TR12 1 tab every 12 hours [Active]; Plavix 75 mg Oral tab 1 tab once daily [Active]; simvastatin 40 mg Oral tab 1 tab once daily [Active]; spironolactone 25 mg Oral tab 1 tab once daily [Active]; - PMHx: 00:15 bowel obstruction; CHF; Chronic pain; Hypertension; restless leg syndrome; tl2 - Immunization history:: Adult Immunizations up to date. - Social history:: Smoking status: Patient/guardian denies using tobacco. Screenin:25 Abuse screen: Denies threats or abuse. Denies injuries from another. Nutritional bp screening: No deficits noted. Tuberculosis screening: No symptoms or risk factors identified. Fall Risk None identified. Assessment: 00:24 General: SEE TRIAGE NOTE. 76YO WF P/W BLE EDEMA AND ABD PAIN/DISTENSION 2/2 CHRONIC bp FISTULA. 01:06 Reassessment: PT SEEN BY ADMIT MD. ADMIT PENDING. PT AGITATED/ANXIOUS, REQUESTING bp MEDICATION TO PUT HER TO SLEEP. MD AWARE. 01:23 Reassessment: pt instructed on need for admit and agrees to be admitted. bb 01:37 Reassessment: PT INCREASINGLY AGITATED, REQUIRING FREQUENT REDIRECTION TO STAY IN BED, bp AO4 BUT NON-COMPLIANT. MD NOTIFIED. 01:48 Reassessment: ADMIT IN PROCESS, PT CONTINUES TO BE AGITATED DESPITE ORDERED MEDICATION. bp 02:28 Reassessment: ADMIT ON HOLD PENDING ADMIT MD CONFERENCE WITH FAMILY. bp 03:06 GI: Bowel sounds COMPLEX POST-SURGICAL ANATOMY. bp Vital Signs: 00:23 BP 142 / 67; Pulse 68; Resp 17; Temp 98.3; Pulse Ox 100% ; bp 01:48 BP 128 / 74; Pulse 81; Resp 13; Pulse Ox 100% ; bp 02:33 Pulse 86; Resp 20; Pulse Ox 95% ; bp 02:33 PT RESISTING BP MEASUREMENT bp ED Course: 00:07 Patient arrived in ED. do 00:14 Jam De La Cruz MD is Attending Physician. gs 00:20 Daniel Vegas, RN is Primary Nurse. bp 00:21 Triage completed. bp 00:24 Arm band placed on. bp 00:25 Patient has correct armband on for positive identification. Bed in low position. Call bp light in reach. Side rails up X2. Adult w/ patient. 00:43 Inserted saline lock: 22 gauge in right antecubital area, using aseptic technique. jb5 Blood collected. 01:32 Lev Lopez MD is Hospitalizing Provider. gs 03:06 No provider procedures requiring assistance completed. Patient admitted, IV remains in bp place. Administered Medications: 00:53 Drug: Lasix 60 mg Route: IVP; Site: right forearm; bp 01:35 Follow up: Response: No adverse reaction bp 01:36 Drug: Benadryl 25 mg Route: IVP; Site: right antecubital; bp 01:49 Follow up: Response: No change in condition bp 02:04 Drug: HALdol (as decanoate) 2.5 mg Route: IM; Site: right deltoid; bp 02:04 Follow up: Response: No adverse reaction; No change in condition bp 02:04 Drug: D50W 25 ml Route: IVP; Site: right antecubital; bp 02:04 Follow up: Response: No adverse reaction bp Outcome: 01:32 Decision to Hospitalize by Provider. 03:06 Admitted to Tele accompanied by tech, via stretcher, room 204, with chart, Report bp called to LETY ARIAS 03:07 Condition: stable bp 03:07 Instructed on the need for admit. 03:43 Patient left the ED. bp Signatures: Elyssa Fisher RN RN Rosalie Young Taylor, RN RN tl2 Tabatha Gutierrez jb5 Jam De La Cruz MD MD gs Peltier, Brian, RN RN bp Corrections: (The following items were deleted from the chart) 02:34 00:23 BP 142 / 67; Pulse 68bpm; Resp 17bpm; Temp 98.3F; bp bp 02:36 02:33 Pulse 86bpm; Resp 20bpm; Pulse Ox 95%; bp bp
[2017-07-03] MEDS ORDERED: HALOPERIDOL LACT 5 MG/ML INJ ONE (01:55)
[2017-07-03] MEDS ORDERED: D50W 25 GM/50 ML SYRINGE IV ONE (01:56)
[2017-07-03] MEDS ORDERED: TRAMADOL HCL 50 MG TAB PO PRN (03:00)
[2017-07-03] MEDS ORDERED: ACETAMINOPHEN 500 MG TAB PO PRN (03:00)
[2017-07-03] MEDS ORDERED: ONDANSETRON 4 MG/2 ML VIAL IV PRN (03:00)
--- NOTE | 2017-07-03 03:05 | P.HP ---
Certification for Inpatient Patient admitted to: Observation With expected LOS: <2 Midnights Practitioner: I am a practitioner with admitting privileges, knowledge of patient current condition, hospital course, and medical plan of care. Services: Services provided to patient in accordance with Admission requirements found in Title 42 Section 412.3 of the Code of Federal Regulations Patient History Date of Service: 07/03/17 Reason for admission: CHF exacerbation History of Present Illness: Ms Burnette is a 76 years old woman with history of CAD, s/p CABG, chronic systolic CHF, last ECHO recorder here shows EF 21%, chronic pain syndrome, on opioid medications, who came to ED complaining of LE extremity swelling and pain. She is confused and not able to provide a coherent history. The patient denied chest pain. She came to the hospital with a couple who apparently live with her. Her son came to ED as well, who is the POA, and he said that the patient is confuse and has hallucinations because the medication she is, specially opioids. Initially she singed AMA form to go home, but she was very confused, and finally decided to stay. Allergies Morphine Adverse Reaction (Mild, Uncoded 06/06/17 00:39) Shortness of breath Home Medications: Carvedilol [Coreg] 3.125 mg PO BID 03/28/17 Clopidogrel Bisulfate [Plavix*] 1 tab PO DAILY 03/28/17 Gabapentin [Neurontin] 400 mg PO TID 03/28/17 Levothyroxine [Synthroid] 125 mcg PO DAILY 03/28/17 Simvastatin 40 mg PO DAILY 03/28/17 Spironolactone 50 mg PO DAILY 03/28/17 Clonazepam [Klonopin] 0.5 mg PO BEDTIME 06/06/17 Duloxetine [Cymbalta Dalayed Release Pellets] 60 mg PO DAILY 06/06/17 Furosemide 80 mg PO DAILY #30 tablet 06/06/17 Levocetirizine Dihydrochloride [Xyzal] 5 mg PO DAILY 06/06/17 Lisinopril 40 mg PO DAILY 06/06/17 Oxycodone HCl [Oxyir] 20 mg PO BID 06/06/17 Ropinirole HCl [Requip] 1 mg PO TID 06/06/17 - Past Medical/Surgical History Diabetic: No -: Congestive heart failure -: Coronary artery disease -: Neuropathy -: Restless leg syndrome -: Dementia -: Coronary artery bypass grafting times 2 -: femoral bi pass (right leg) - Family History Family History: Reviewed- Non-Contributory - Social History Alcohol use: No CD- Drugs: No Caffeine use: Yes Place of Residence: Home Review of Systems 10-point ROS is otherwise unremarkable Physical Examination - Physical Exam General: Alert, Moderate distress (due to LE pain) HEENT: Atraumatic, PERRLA, Mucous membr. moist/pink, EOMI, Sclerae nonicteric Neck: Supple, 2+ carotid pulse no bruit, No LAD Respiratory: Clear to auscultation bilaterally, Normal air movement Cardiovascular: Regular rate/rhythm, Normal S1 S2 Gastrointestinal: Normal bowel sounds, No tenderness Musculoskeletal: Swelling (bilateral LE edema 3+), Erythema, Tenderness Integumentary: No rashes Neurological: Normal speech, Normal strength at 5/5 x4 extr, Normal tone, Normal affect Lymphatics: No axilla or inguinal lymphadenopathy - Studies Laboratory Data (last 24 hrs) 07/03/17 00:41: PT 14.2 H, INR 1.20 07/03/17 00:41: WBC 6.8, Hgb 9.4 L, Hct 31.7 L, Plt Count 263 07/03/17 00:41: Sodium 137, Potassium 3.6, BUN 29 H, Creatinine 1.49 H, Glucose 61 L 07/03/17 00:29: PT Cancelled, INR Cancelled 07/03/17 00:29: WBC Cancelled, Hgb Cancelled, Hct Cancelled, Plt Count Cancelled 07/03/17 00:29: Sodium Cancelled, Potassium Cancelled, BUN Cancelled, Creatinine Cancelled, Glucose Cancelled Assessment and Plan - Problems (Diagnosis) (1) Acute on chronic systolic CHF (congestive heart failure) Current Visit: Yes Status: Acute (2) Chronic pain syndrome Onset Date: 02/25/17 Current Visit: No Status: Acute (3) Coronary artery disease Onset Date: 02/25/17 Current Visit: No Status: Acute Qualifiers: Coronary Disease-Associated Artery/Lesion type: bypass graft, autologous vein Associated angina: without angina Qualified Code(s): I25.810 - Atherosclerosis of coronary artery bypass graft(s) without angina pectoris (4) PAD (peripheral artery disease) Current Visit: No Status: Acute - Plan Ms Burnette will be admitted to the hospital due to acute on chronic systolic CHF , will order IV lasix, fluid restriction, cardiology consult. His son is concern about the couple who lives with her, about her safety. Will consult social service for home safety assessment. - Advance Directives Does patient have a Living Will: Yes Does patient have a Durable POA for Healthcare: Yes - Code Status/Comfort Care Code Status Assessed: Yes Code Status: Full Code
[2017-07-03 03:39] LABS: Anisocytosis 3+; Blood Morphology Comment NOTED (NOT SEEN); Hypochromasia 1+; Platelet Estimate ADEQ
[2017-07-03] MEDS ORDERED: POTASSIUM CL SA 10 MEQ TAB PO ONE (05:00)
[2017-07-03 05:39] LABS: Urine Appearance CLOUDY; Urine Bilirubin NEGATIVE (NEG); Urine Blood TRACE (NEG); Urine Color YELLOW; Urine Glucose NEGATIVE (NEG); Urine Protein NEGATIVE (NEG); Urine pH 5.5 (5.0-7.0)
[2017-07-03 05:43] LABS: Urine Microscopic Reflex ORDER UMIC
[2017-07-03] MEDS: LEVOTHYROXINE SOD 0.125 MG TAB PO SCH (05:52)
[2017-07-03 06:00] LABS: Urine Bacteria 20-50 /HPF (<20); Urine Culture Reflex Order REFLEXED
[2017-07-03 06:01] LABS: Urine RBC <5 /HPF (NONE SEEN)
[2017-07-03] MEDS ORDERED: ENOXAPARIN 40 MG/0.4 ML SQ SCH (09:00)
[2017-07-03] MEDS: FUROSEMIDE 40 MG/4 ML VIAL IV SCH ×3 (09:01→23:59)
[2017-07-03] MEDS: CLOPIDOGREL 75 MG TABLET PO SCH (09:01)
[2017-07-03] MEDS: ROPINIROLE HCL 1 MG TAB PO SCH ×3 (09:01→21:28)
[2017-07-03] MEDS: LISINOPRIL 20 MG TAB PO SCH (09:02)
[2017-07-03] MEDS: SPIRONOLACTONE 25 MG TABLET PO SCH (09:02)
[2017-07-03] MEDS: CARVEDILOL 3.125 MG TAB PO SCH ×2 (09:03→21:28)
[2017-07-03] MEDS: GABAPENTIN 400 MG CAP PO SCH ×3 (09:03→21:28)
[2017-07-03 11:44] LABS: Arterial Blood Carboxyhemoglob 2.6 % (0-1.5); Blood Gas Oxyhemoglobin 86.8 % (94-97); Blood O2 Saturation 90.9 % (92-98.5)
--- NOTE | 2017-07-03 13:13 | CON ---
Date of Consultation: 07/03/[address] Chiu's service on 07/02/2017. Reason For Consultation: Congestive heart failure. History Of Present Illness: Ms. Burnette is a 76-year-old woman who has a history of chronic systolic congestive heart failure, coronary artery disease, status post CABG in the past. She normally sees Su Cochran in [place] for her cardiac care. She has had multiple other problems including history of small bowel obstruction, hypertension, chronic pain, anxiety and depression, dyslipidemia, hypothyroi dism, anxiety, and peripheral vascular disease, status post multiple SFA stents in the past. Came in with shortness of breath, edema, abdominal pain, back pain. No PND, orthopnea. No palpitations or syncope. No chest pain Allergies: ALLERGIC TO MORPHINE. Medications: At home include Coreg 3.125 mg b.i.d., Plavix, Lasix 80 mg daily, Synthroid, lisinopril , gabapentin, Cymbalta, spironolactone 50 mg daily, Zocor, and Requip. Review of Systems: Negative. Social History: Negative. Family History: Negative. Physical Examination: Vital Signs: Stable. She was afebrile. HEENT: Negative. Neck: Supple. No bruit, JVD or lymphadenopathy. Chest: Reveals some rales both bases. Cardiac: Revealed regular rhythm and rate with no gallops or rubs or murmurs. Abdomen: Benign. Extremities: Revealed 1+ edema. Diagnostic Data: Creatinine is 1.49, hemoglobin 9.4. Troponin is 0.39. Echocardiogram that was don e in February of 2017 showed moderate pulmonary hypertension, ejection fraction of 21%. Chest x-ray now shows CHF. Venous Doppler was negative. Impression And Plan: 1.Acute exacerbation of chronic systolic congestive heart failure. 2.Renal insufficiency stage 3. 3.Anemia. 4.Elevated troponin probably secondary to congestive heart failure. 5.Moderate pulmonary hypertension. 6.Anxiety and depression. 7.Restless legs syndrome. 8.Dyslipidemia, on Zocor. 9.Hypothyroidism, on Synthroid. 10.Neuropathy and chronic back pain. My recommendation is to increase her Coreg to at least 6.25 b.i.d. she probably needs a higher dose o f Lasix at home of 80 b.i.d. I would continue the other medications for now and keep an eye on her ki dney function with her lisinopril. I am puzzled with Ms. Burnette as she is a perfect candidate for a biventricular pacemaker and AICD. She has a left bundle-branch block with a wide QRS complex. She h as an ejection fraction of 21%. I will discuss the case further with Dr. Cochran regarding that issue. We will continue present regimen for now and consider discharging her whenever it is okay with Dr. Palmer and Magdiel who are covering for Dr. Chiu at this point. CATALINA/ABELINO Voice ID: [id number] Report ID: [id number]
[2017-07-03] MEDS ORDERED: clonazePAM 0.5 MG TAB PO SCH (21:00)
[2017-07-03] MEDS: ATORVASTATIN 20 MG TAB PO SCH (21:28)
--- NOTE | 2017-07-03 22:32 | EKG ---
Test Date: 2017-07-03 Test Time: 00:55:01 Guidance Counselor: COLIN MEASUREMENT RESULTS: Intervals: Rate: 68 VA: 164 QRSD: 146 QT: 452 QTc: 480 [place]: P: 84 VA: 164 QRS: 269 T: 90 INTERPRETIVE STATEMENTS: Normal sinus rhythm Left bundle branch block Abnormal ECG Compared to ECG 06/30/2017 19:49:44 no significant change from previous ECG Electronically Signed On 07-03-17 22:31:38 CDT by Gregor Rodrigues
[2017-07-04 05:36] LABS: Potassium 4.8 mEq/L (3.6-5.0)
[2017-07-04] MEDS: LEVOTHYROXINE SOD 0.125 MG TAB PO SCH (05:49)
[2017-07-04] MEDS: SPIRONOLACTONE 25 MG TABLET PO SCH (08:10)
[2017-07-04] MEDS: ROPINIROLE HCL 1 MG TAB PO SCH ×3 (09:00→21:15)
[2017-07-04] MEDS: DULOXETINE 30 MG CAP PO SCH (09:00)
[2017-07-04] MEDS ORDERED: HOME MED 1 EA UNK (Levocetirizine Dihydrochloride [Xyzal] 5 MG) PO SCH (09:00)
[2017-07-04] MEDS: CARVEDILOL 3.125 MG TAB PO SCH (09:00)
[2017-07-04] MEDS: LISINOPRIL 20 MG TAB PO SCH (09:00)
[2017-07-04] MEDS: CLOPIDOGREL 75 MG TABLET PO SCH (09:00)
[2017-07-04] MEDS: CEFTRIAXONE/SWI 1gm 1 GM/10 ML SYR IV SCH (09:00)
[2017-07-04] MEDS: ENOXAPARIN 30 MG/0.3 ML SQ SCH (09:00)
[2017-07-04] MEDS: CETIRIZINE HCL 5 MG TABLET PO SCH (09:00)
[2017-07-04] MEDS: FUROSEMIDE 40 MG/4 ML VIAL IV SCH ×2 (09:00→21:19)
--- NOTE | 2017-07-04 11:36 | RAD REPORT ---
EXAM DESCRIPTION: RAD - Chest Single View - 07/04/2017 11:30 am CLINICAL HISTORY: CHF COMPARISON: 06/30/2017 FINDINGS: Portable technique limits examination quality. Left-sided pulmonary opacities are noted to have mildly progressed since comparative examination. The right lung appears grossly clear. The heart is significantly prominent with a tortuous thoracic aort a. Sternotomy wires seen. IMPRESSION: Mild progression of left-sided pulmonary opacities since comparative study. This may rep resent development of superimposed pneumonia/ infiltrate or secondary to asymmetric pulmonary edema.
--- NOTE | 2017-07-04 12:09 | RAD REPORT ---
EXAM DESCRIPTION: CT - Head Brain Wo Cont - 07/04/2017 11:57 am CLINICAL HISTORY: Altered consciousness. COMPARISON: 05/16/2017, 03/06/2017 TECHNIQUE: All CT scans are performed using dose optimization technique as appropriate and may inclu de automated exposure control or mA/KV adjustment according to patient size. FINDINGS: No intracranial hemorrhage, hydrocephalus or extra-axial fluid collection.Mild generalized brain atrophy is present with mild periventricular and deep white matter chronic microvascular ische isi changes.No areas of brain edema or evidence of midline shift. The paranasal sinuses and mastoids are clear. The calvarium is intact. Vertebral arteries are calcifi ed. IMPRESSION: No acute intracranial abnormality.
--- NOTE | 2017-07-04 12:38 | RAD REPORT ---
EXAM DESCRIPTION: US - Renal Ultrasound-Complete - 07/04/2017 12:15 pm CLINICAL HISTORY: Acute renal failure. COMPARISON: None. FINDINGS: Both kidneys are normal in size, shape and echotexture. The right kidney measures 9.8 x 4.4 cm. No hydronephrosis, focal mass or perinephric fluid. The left kidney measures 8.6 x 4.9 cm. No hydronephrosis, focal mass or perinephric fluid. IMPRESSION: Unremarkable renal sonogram.
--- NOTE | 2017-07-04 12:44 | P.PN ---
Subjective Date of Service: 07/04/17 Chief Complaint: CHF exacerbation Patient seen and examined at bedside with RN. Chart reviewed. Case discussed with cardiology and nephrology at this time. Patient still remains in altered mental status at this time. Lethargic this a.m.. Patient was given Klonopin at bedtime last night. Review of Systems 10-point ROS is otherwise unremarkable Physical Examination - Vital Signs Temperature: 97.7 F Blood Pressure: 114/55 Pulse: 64 Respirations: 18 Pulse Ox (%): 97 - Physical Exam General: In no apparent distress, Demented, Confused HEENT: Atraumatic Neck: Supple Respiratory: Normal air movement, Crackles/rales Cardiovascular: Regular rate/rhythm, Normal S1 S2 Gastrointestinal: Normal bowel sounds, No tenderness Musculoskeletal: No tenderness Integumentary: No rashes Neurological: Normal tone, Normal affect, Abnormal speech, Abnormal strength Lymphatics: No axilla or inguinal lymphadenopathy - Studies Laboratory Data (last 24 hrs) 07/04/17 04:33: Sodium 142, Potassium 4.8, BUN 61 H D, Creatinine 2.17 H, Glucose 78 07/03/17 19:18: Troponin I 3.93 H* Medications List Reviewed: Yes Assessment & Plan - Problems (Diagnosis) (1) Altered mental status Current Visit: Yes Status: Acute Plan: Pt is currently AMS. Most likely 2.2 to Infection vs new baseline -Currenltly on IV abx for UTI -Head CT negative -Consulted Neurology Qualifiers: Altered mental status type: delirium Qualified Code(s): R41.0 - Disorientation, unspecified (2) Acute on chronic systolic CHF (congestive heart failure) Onset Date: 07/04/17 Current Visit: Yes Status: Acute Plan: Acute CHF -EF of 21% on ECHo -IV lasix 40 q8h now 80mg BID -Cardiology consulted. Appreciated reccs -Elevated Troponin 2.2 to CHF vs demand ischemia (3) Coronary artery disease Onset Date: 02/25/17 Current Visit: No Status: Chronic Qualifiers: Coronary Disease-Associated Artery/Lesion type: bypass graft, autologous vein Associated angina: without angina Qualified Code(s): I25.810 - Atherosclerosis of coronary artery bypass graft(s) without angina pectoris (4) Hyperlipidemia Current Visit: No Status: Chronic Qualifiers: Hyperlipidemia type: mixed hyperlipidemia Qualified Code(s): E78.2 - Mixed hyperlipidemia (5) Hypertension Current Visit: No Status: Chronic Qualifiers: Hypertension type: essential hypertension Qualified Code(s): I10 - Essential (primary) hypertension Discharge Plan: Fdc Plan to discharge in: 48 Hours - Code Status/Comfort Care Code Status Assessed: Yes Critical Care: No
[2017-07-04 18:38] LABS: Barbiturates NEGATIVE; Benzodiazepines NEGATIVE; Cocaine NEGATIVE; METHAMPHETAM NEGATIVE; Opiates NEGATIVE; Phencyclidine NEGATIVE; THC Cannibis NEGATIVE
[2017-07-04] MEDS: CARVEDILOL 6.25 MG TAB PO SCH (21:14)
[2017-07-04] MEDS: ATORVASTATIN 20 MG TAB PO SCH (21:15)
--- NOTE | 2017-07-05 00:52 | CON ---
Date of Consultation: 07/04/2017 Chief Complaint: Acute kidney injury. History Of Present Illness: Nephrology consultation was requested for acute kidney injury. The patient was found to have elevated BUN of 61, creatinine 2.17. Over last 24 hours renal function has declined. Yesterday BUN was 29 and creatinine 1.49. The patient has nonoliguric urine output. Review of the previous records revealed creatinine baseline level of 0.90 in February 2017. Urine output today is 770 over last 8 hours. The patient was found to have moderately severe acute kidney injury, nonoliguric associated with renal hypoperfusion. Renal ultrasound did not show hydronephrosis. There is no evidence of obstructive uropathy. Right kidney is 9.8 cm in length and left kidney is 8.6 cm in length. Chest x-ray showed mild progression of left-sided pulmonary opacification. This may represent development of superimposed pneumonia, infiltrates of asymmetric pulmonary edema. The patient is 76-year- old woman, who has history of chronic systolic congestive heart failure status post CABG for severe coronary artery disease. She has history of small bowel obstruction, hypertension, anxiety, depression, dyslipidemia, hypothyroidism, peripheral vascular disease, status post multiple revascularization procedures, stents to SFA. She came to the hospital because of shortness of breath, abdominal pain, and some atypical chest pain. She denies PND, orthopnea and denies syncope. She has some legs edema, was complains of difficulty with ambulation. She was started on Lasix IV 80 mg twice a day for congestive heart failure exacerbation with chronic systolic dysfunction. She has underlying chronic kidney disease stage 3. Baseline creatinine level is ranging from 0.8- 1.1. The patient has moderately severe pulmonary hypertension and restless legs syndrome. Today chest x-ray showed possible pneumonia. The patient remains encephalopathic and cannot provide review of system. She remains very lethargic, somewhat arousable and is restless. She has severe systolic dysfunction. Cardiac echo showed ejection fraction of 21%. When she came to the emergency room, family was concerned that she was confused and had hallucination. Previously prior to this admission she was taking opioids. Review of Systems: Unobtainable due to the patient's condition. She is confused and encephalopathic. Past Medical History: Congestive heart failure, systolic dysfunction, chronic coronary artery disease, COPD, peripheral neuropathy, restless legs syndrome, anxiety, depression, dementia, CABG, chronic kidney disease stage 3. Social History: Denies tobacco, alcohol, or illicit drugs. Family History: No kidney disease in the family. Physical Examination: General: The patient is lethargic. Eyes: Anicteric sclerae. No hemorrhagic changes. Ears, Nose, Mouth, and Throat: Oral mucosa moist. No pallor. Neck: Supple. No JVD. There is no bruits. Respiratory: Clear to auscultation bilaterally. Heart: S1, S2. No pericardial friction rub. Gastrointestinal: Normal bowel sounds. No rebound. No guarding. Extremities: Minimal edema in lower extremities. Skin: Warm and dry. No skin rashes. Neurological: No tremor. Psychiatric: The patient is confused, encephalopathic. Diagnostic Data: WBC 6.8, hemoglobin 9.4, hematocrit 31.7, platelet count 263, 000. Sodium 142, potassium 4.8, chloride 102, CO2 23, BUN 61, creatinine 2.17, calcium 8.6. Troponin is 3.93, BNP 3500. Urinalysis; specific gravity is 1.01. Urine blood is trace. Urine and leukocyte esterase 3+. RBC less than 5 , WBC 15. Urine culture pending. Drug screen is negative. ABG showed pH 7.43 , pCO2 36.6, PO2 69.2, hemoglobin 9.4, WBC 6.8, platelet count 263,000. Urine protein negative. CT scan of the head showed no acute intracranial abnormalities. Impression And Plan: 1. Acute kidney injury. The patient sevre has systolic dysfunction, congestive heart failure and acute kidney injury with some element of cardiorenal syndrome. The patient has respiratory distress, possible pneumonia. Continue IV antibiotics for pneumonia and diuretics for congestive heart failure and cardiorenal syndrome. The patient may require diuretic drip and Lasix was started. 2. Acute on chronic congestive heart failure with anasarca, peripheral edema. Ejection fraction is critically low of 21% of cardiac echo. The patient was started on Lasix 40 mg every 8 hours and dose was increased to 80 mg twice a day. Troponin level is elevated. The patient may require IV contrast for cardiac catheterization. Recommendation as per Cardiology. There is high risk of contrast-induced nephropathy in the patient who has renal function declined over last 48 hours. 3. Hypertension. Continue medication for blood pressure. Because of risk of hyperkalemia, ANGELICA inhibitor is currently on hold. 4. Encephalopathy severe. This may represent encephalopathy secondary to infection. Urine culture showed positive bacterial growth previously, but currently is pending. The patient may require broad-spectrum antibiotics for pneumonia. Adjust antibiotic dose to renal function. MARI/ABELINO Voice ID: [id number] Report ID: [id number] MTDD
[2017-07-05 06:37] LABS: Magnesium 1.9 mg/dL (1.8-2.5); Potassium 3.6 mEq/L (3.6-5.0)
[2017-07-05] MEDS: LEVOTHYROXINE SOD 0.125 MG TAB PO SCH (06:51)
[2017-07-05] MEDS: CETIRIZINE HCL 5 MG TABLET PO SCH (09:08)
[2017-07-05] MEDS: LISINOPRIL 20 MG TAB PO SCH (09:08)
[2017-07-05] MEDS: DULOXETINE 30 MG CAP PO SCH (09:08)
[2017-07-05] MEDS: CARVEDILOL 6.25 MG TAB PO SCH ×2 (09:09→20:33)
[2017-07-05] MEDS: ENOXAPARIN 30 MG/0.3 ML SQ SCH (09:09)
[2017-07-05] MEDS: FUROSEMIDE 40 MG/4 ML VIAL IV SCH ×2 (09:09→20:34)
[2017-07-05] MEDS: SPIRONOLACTONE 25 MG TABLET PO SCH (09:09)
[2017-07-05] MEDS: CLOPIDOGREL 75 MG TABLET PO SCH (09:09)
[2017-07-05] MEDS: ROPINIROLE HCL 1 MG TAB PO SCH ×3 (09:09→20:33)
[2017-07-05] MEDS: CEFTRIAXONE/SWI 1gm 1 GM/10 ML SYR IV SCH (09:09)
--- NOTE | 2017-07-05 11:00 | PN ---
Date of Progress Note: 07/05/2017 Subjective: The patient is still weak. No significant shortness of breath. The patient was admitte d with acute kidney injury secondary to cardiorenal. The patient has been diuresed. Physical Examination: Vital Signs: When I saw the patient, blood pressure 147/65, pulse of 63, afebrile. Chest: Crackles on the base. Heart: S1, S2. Regular. Abdomen: Soft, nontender. Extremities: Trace edema. Laboratory Data: Chest x-ray, congestion. WBC 6.8, H and H 9.4/31.7, platelets 263. Sodium 143, po tassium 3.6, bicarb 32, BUN 85, creatinine 2 trending down, calcium 8.5, magnesium 1.9. BNP 3500. R eviewing the record, the patient's baseline creatinine 1.15 back in early June with GFR of 46. Medications: Current medications the patient on its include: 1.Lisinopril. 2.Ceftriaxone. 3.Cetirizine. 4.Lovenox. 5.Carvedilol 6.25. 6.Aldactone 50 b.i.d. 7.Requip. 8.Lasix 80 b.i.d. 9.Levothyroxine. Assessment And Plan: 1.Acute kidney injury secondary to cardiorenal, still on the over volume side. I am going to contin ue diuresis. We will hold on the ANGELICA inhibitor for the time being. We will monitor. I am going to go ahead and send for protein creatinine and TSH, and we will follow up the patient. 2.Hypertension, controlled, not optimal. Given the acute kidney injury, I will backup on the ANGELICA in hibitor, continue diuresis. We will utilize the blood pressure for more diuresis. We will add nitro glycerin and low dose of hydralazine given the ejection fraction of 20%, and we will follow up the jeison timmons. Continue beta-daren. 3.Congestive heart failure. We will optimize her fluid status. 4.Anemia in the presence of acute kidney injury. I will send for anemia workup. We will follow up. NANCI Voice ID: [id number] Report ID: [id number]
--- NOTE | 2017-07-05 15:49 | P.PN ---
Subjective Date of Service: 07/05/17 Chief Complaint: CHF exacerbation Patient seen and examined at bedside with RN. Chart reviewed. Case discussed with cardiology and nephrology at this time. Pt today is more alert and oriented. doing well overall. States she feels well to go home. Review of Systems 10-point ROS is otherwise unremarkable Physical Examination - Vital Signs Temperature: 98 F Blood Pressure: 125/56 Pulse: 63 Respirations: 18 Pulse Ox (%): 96 - Physical Exam General: Alert, In no apparent distress, Oriented x3 HEENT: Atraumatic Neck: Supple Respiratory: Normal air movement, Crackles/rales Cardiovascular: Regular rate/rhythm, Normal S1 S2 Gastrointestinal: Normal bowel sounds, No tenderness Musculoskeletal: No tenderness Integumentary: No rashes Neurological: Normal speech, Normal tone, Normal affect Lymphatics: No axilla or inguinal lymphadenopathy - Studies Laboratory Data (last 24 hrs) 07/04/17 11:15: B-Natriuretic Peptide > 3500 H Microbiology Data (last 24 hrs): 07/03/17 04:55 Clean Catch Urine [place] Count - Final >100,000 CFU/ML. 07/03/17 04:55 Clean Catch Urine - Final Medications List Reviewed: Yes Assessment & Plan - Problems (Diagnosis) (1) Altered mental status Current Visit: Yes Status: Acute Plan: Pt is currently AAOx 3. Most likely 2.2 to drugs. -Currenltly on IV abx for UTI -Head CT negative Qualifiers: Altered mental status type: delirium Qualified Code(s): R41.0 - Disorientation, unspecified (2) Acute on chronic systolic CHF (congestive heart failure) Onset Date: 07/04/17 Current Visit: Yes Status: Acute Plan: Acute CHF -EF of 21% on ECHo -IV lasix 40 q8h now 80mg BID -Cardiology consulted. Appreciated reccs -Elevated Troponin 2.2 to CHF vs demand ischemia (3) Coronary artery disease Onset Date: 02/25/17 Current Visit: No Status: Chronic Qualifiers: Coronary Disease-Associated Artery/Lesion type: bypass graft, autologous vein Associated angina: without angina Qualified Code(s): I25.810 - Atherosclerosis of coronary artery bypass graft(s) without angina pectoris (4) Hyperlipidemia Current Visit: No Status: Chronic Qualifiers: Hyperlipidemia type: mixed hyperlipidemia Qualified Code(s): E78.2 - Mixed hyperlipidemia (5) Hypertension Current Visit: No Status: Chronic Qualifiers: Hypertension type: essential hypertension Qualified Code(s): I10 - Essential (primary) hypertension (6) Generalized weakness Current Visit: Yes Status: Acute Plan: PT/OT consulted.
[2017-07-05] MEDS: HYDRALAZINE HCL 10 MG TABLET PO SCH (20:33)
[2017-07-05] MEDS: ATORVASTATIN 20 MG TAB PO SCH (20:34)
[2017-07-06 05:14] LABS: RBC Red Blood Cell Count 3.96 M/uL (3.86-4.86)
[2017-07-06] MEDS: LEVOTHYROXINE SOD 0.125 MG TAB PO SCH (05:48)
[2017-07-06 07:14] LABS: Albumin 2.5 g/dL (3.2-5.5); Ferritin 26.4 ng/ml (11.0-306.8); Folic Acid, (Folate) 6.9 ng/ml (>5.21); Magnesium 1.7 mg/dL (1.8-2.5); Phosphorus 2.7 mg/dL (2.5-4.3); Thyroid Stimulating Hormone 0.98 uIU/mL (0.34-5.60)
[2017-07-06 07:20] LABS: Potassium 2.7 mEq/L (3.6-5.0)
[2017-07-06] MEDS ORDERED: POTASSIUM CL SA 10 MEQ TAB PO ONE (08:00)
[2017-07-06] MEDS ORDERED: MAGNESIUM SULFATE 1 gm IVPB 1 GM/100 ML BAG IV ONE (08:00)
[2017-07-06] MEDS ORDERED: KCL 20 MEQ/100 mL IVPB 20 MEQ/100 ML BAG IV SCH (08:00)
[2017-07-06] MEDS: CETIRIZINE HCL 5 MG TABLET PO SCH (08:49)
[2017-07-06] MEDS: CEFTRIAXONE/SWI 1gm 1 GM/10 ML SYR IV SCH (08:49)
[2017-07-06] MEDS: ENOXAPARIN 30 MG/0.3 ML SQ SCH (08:49)
[2017-07-06] MEDS: DULOXETINE 30 MG CAP PO SCH (08:51)
[2017-07-06] MEDS: CLOPIDOGREL 75 MG TABLET PO SCH (08:51)
[2017-07-06] MEDS: ROPINIROLE HCL 1 MG TAB PO SCH ×3 (08:51→21:25)
[2017-07-06] MEDS: HYDRALAZINE HCL 10 MG TABLET PO SCH ×2 (08:51→21:00)
[2017-07-06] MEDS: SPIRONOLACTONE 25 MG TABLET PO SCH (08:51)
[2017-07-06] MEDS: CARVEDILOL 6.25 MG TAB PO SCH ×2 (08:52→21:00)
[2017-07-06] MEDS: FUROSEMIDE 40 MG/4 ML VIAL IV SCH ×2 (08:52→21:00)
[2017-07-06] MEDS: NITROGLYCERIN 0.2 MG/HR (5 MG) PATCH TD SCH (09:00)
[2017-07-06] MEDS ORDERED: PNEUMOCOCCAL VACCINE 0.5 ML IMVAC ONE (09:00)
[2017-07-06 11:08] LABS: Absolute Lymphocytes (CBC) 1.2 K/uL (0.7-4.9); Absolute Monocytes 0.7 K/uL (0.1-1.3); Absolute Neutrophil 8.8 K/uL (1.8-8.0); Basophils % 0.3 % (0-1.3); Eosinophils % 0.3 % (0-4.4); Hematocrit 26.2 % (36.0-45.0); MCH 20.8 pg (27.0-35.0); MCV 68.1 fL (80-100); MPV 9.6 fL (7.6-11.3); Monocytes % 6.7 % (3.3-12.3); RBC Red Blood Cell Count 3.85 M/uL (3.86-4.86)
[2017-07-06] MEDS: KCL 20 MEQ/100 mL IVPB 20 MEQ/100 ML BAG IV SCH ×3 (12:57→17:44)
[2017-07-06] MEDS ORDERED: NA CHLORIDE 0.9% 1,000 ML ONE ×2 (12:59→13:04)
--- NOTE | 2017-07-06 16:05 | P.PN ---
Subjective Date of Service: 07/06/17 Chief Complaint: CHF exacerbation Patient seen and examined at bedside with RN. Chart reviewed. Case discussed with cardiology and nephrology at this time. Pt this morning had a BM with melanotic stool with BR stool as well. Pt also had an episode of hematemesis Review of Systems 10-point ROS is otherwise unremarkable Physical Examination - Vital Signs Temperature: 98.4 F Blood Pressure: 110/55 Pulse: 55 Respirations: 16 Pulse Ox (%): 100 - Physical Exam General: Alert, In no apparent distress HEENT: Atraumatic, PERRLA, EOMI Neck: Supple, JVD not distended Respiratory: Clear to auscultation bilaterally, Normal air movement Cardiovascular: Regular rate/rhythm, Normal S1 S2 Gastrointestinal: Normal bowel sounds, No tenderness Musculoskeletal: No tenderness Integumentary: No rashes Neurological: Normal speech, Normal tone, Normal affect Lymphatics: No axilla or inguinal lymphadenopathy - Studies Medications List Reviewed: Yes Assessment & Plan - Problems (Diagnosis) (1) Altered mental status Current Visit: Yes Status: Resolved Plan: Pt is currently AAOx 3. Most likely 2.2 to drugs. -Currenltly on IV abx for UTI -Head CT negative Qualifiers: Altered mental status type: delirium Qualified Code(s): R41.0 - Disorientation, unspecified (2) Acute on chronic systolic CHF (congestive heart failure) Onset Date: 07/04/17 Current Visit: Yes Status: Acute Plan: Acute CHF -EF of 21% on ECHo -IV lasix 40 q8h now 80mg BID -Cardiology consulted. Appreciated reccs -Elevated Troponin 2.2 to CHF vs demand ischemia (3) Coronary artery disease Onset Date: 02/25/17 Current Visit: No Status: Chronic Qualifiers: Coronary Disease-Associated Artery/Lesion type: bypass graft, autologous vein Associated angina: without angina Qualified Code(s): I25.810 - Atherosclerosis of coronary artery bypass graft(s) without angina pectoris (4) Hyperlipidemia Current Visit: No Status: Chronic Qualifiers: Hyperlipidemia type: mixed hyperlipidemia Qualified Code(s): E78.2 - Mixed hyperlipidemia (5) Hypertension Current Visit: No Status: Chronic Qualifiers: Hypertension type: essential hypertension Qualified Code(s): I10 - Essential (primary) hypertension (6) Generalized weakness Current Visit: Yes Status: Acute Plan: PT/OT consulted. (7) GI bleed Current Visit: Yes Status: Acute Plan: GI bleed with BRBPR and Melana noted. -GI consulted. Reccs appreciated. -EGD and colonoscopy scheduled for azeem -Protonix ggt -No fluids due to CHF with poor EF Qualifiers: GI bleed type/associated pathology: melena Qualified Code(s): K92.1 - Melena Discharge Plan: Home Plan to discharge in: 24 Hours - Code Status/Comfort Care Code Status Assessed: Yes Critical Care: No
[2017-07-06] MEDS ORDERED: PANTOPRAZOLE 40MG TABLET PO SCH (16:30)
--- NOTE | 2017-07-06 17:00 | RAD REPORT ---
EXAM DESCRIPTION: CT - Head Brain Wo Cont - 07/06/2017 4:51 pm CLINICAL HISTORY: New onset seizures. COMPARISON: 07/04/2017, 05/16/2017 TECHNIQUE: All CT scans are performed using dose optimization technique as appropriate and may inclu de automated exposure control or mA/KV adjustment according to patient size. FINDINGS: No intracranial hemorrhage, hydrocephalus or extra-axial fluid collection.Moderate general ized brain atrophy is present with moderate periventricular and deep white matter chronic microvascul ar ischemic changes.No areas of brain edema or evidence of midline shift. The paranasal sinuses and mastoids are clear. The calvarium is intact. Vertebral arteries are calcifi ed. IMPRESSION: No acute intracranial abnormality.
[2017-07-06] MEDS: PANTOPRAZOLE INJ 80 MG in NA CHLORIDE 0.9% 250 ML IV SCH (17:44)
[2017-07-06] MEDS: METRONIDAZOLE 500mg IVPB 500 MG/100 ML BAG IV SCH (17:44)
[2017-07-06] MEDS ORDERED: GOLYTELY 4000 ML PO SCH (18:00)
[2017-07-06 18:43] LABS: Absolute Lymphocytes (CBC) 1.2 K/uL (0.7-4.9); Absolute Monocytes 0.6 K/uL (0.1-1.3); Absolute Neutrophil 7.8 K/uL (1.8-8.0); Basophils % 0.1 % (0-1.3); Eosinophils % 0.1 % (0-4.4); Hematocrit 19.7 % (36.0-45.0); MCH 21.1 pg (27.0-35.0); MCV 68.7 fL (80-100); MPV 9.7 fL (7.6-11.3); Monocytes % 6.5 % (3.3-12.3); RBC Red Blood Cell Count 2.87 M/uL (3.86-4.86)
[2017-07-06 18:54] LABS: Albumin 2.2 g/dL (3.2-5.5); Bilirubin Total 0.8 mg/dL (0.3-1.2); Potassium 4.5 mEq/L (3.6-5.0); Protein, Total 4.5 g/dL (6.0-8.3)
[2017-07-06 20:03] LABS: Absolute Lymphocytes (CBC) 1.1 K/uL (0.7-4.9); Absolute Monocytes 0.7 K/uL (0.1-1.3); Absolute Neutrophil 8.2 K/uL (1.8-8.0); Basophils % 0.5 % (0-1.3); Eosinophils % 0.1 % (0-4.4); Lymphocytes % 11.2 % (15.3-44.8); MCH 21.2 pg (27.0-35.0); MCV 68.6 fL (80-100); MPV 9.5 fL (7.6-11.3); Monocytes % 6.9 % (3.3-12.3); RBC Red Blood Cell Count 2.83 M/uL (3.86-4.86)
[2017-07-06 20:12] LABS: Hematocrit 19.4 % (36.0-45.0)
[2017-07-06 20:16] LABS: Protime INR 1.59
[2017-07-06 20:26] LABS: Anisocytosis 1+; Blood Morphology Comment NOTED (NOT SEEN); Hypochromasia 2+; Platelet Estimate ADEQ; Platelets, Giant FEW; Urine White Blood Cell Casts OK
[2017-07-06 20:27] LABS: Polychromasia 1+
[2017-07-06] MEDS: CIPROFLOXACIN 400mg IV 400 MG/200 ML BAG IV SCH (21:24)
[2017-07-06] MEDS: ATORVASTATIN 20 MG TAB PO SCH (21:25)
--- NOTE | 2017-07-06 22:07 | PN ---
Date of Progress Note: 07/06/2017 Ms. Burnette has been in the hospital since 07/02, this is the . She has had some GI bleeding, and endoscopy is planned. A colonoscopy is even being discussed, I am asked to see her before going thr ough that. The patient has severe underlying heart disease. She has ejection fraction in the 20s. The patient has severe underlying heart disease, ejection fraction 20%, and history of bypass surgery , stents. She does not have a defibrillator as many people do, and I believe that was a decision nell t the patient and family made with Dr. Cochran who is her usual software computer specialist. Ms. Burnette has severe un derlying problems and has had multiple seizures. She has had elevated troponins. She had a B-natriu retic peptide that is over 3500, and my impression is that her risk of going through any procedure is going to be high. About the only things that would really reduce her risk would be done if we were to transfer Dr. Quoc rehman's care, we might consider putting in a defibrillator. She is simply not a low risk patient anyway to look at it, in fact when I just had to sit up, she had one of her seizures, and on telemetry, she was in sinus rhythm the whole time. She never dropped her blood pressure and never lost her pulse, b ut had a seizure, it lasted less than 15 seconds. She woke up and she had bowel incontinence while s he was seizing. So, the patient is quite unstable, and I would expect neurologic and cardiac rhythm and other complications would be likely to occur if she undergoes any procedures. SUHA Voice ID: [id number] Report ID: [id number]
[2017-07-06] MEDS ORDERED: NA CHLORIDE 0.9% 250 ML ONE (22:19)
[2017-07-07] MEDS: METRONIDAZOLE 500mg IVPB 500 MG/100 ML BAG IV SCH ×3 (02:31→16:56)
[2017-07-07] MEDS: PANTOPRAZOLE INJ 80 MG in NA CHLORIDE 0.9% 250 ML IV SCH ×2 (03:43→16:48)
[2017-07-07 04:56] LABS: Absolute Lymphocytes (CBC) 1.4 K/uL (0.7-4.9); Absolute Monocytes 1.5 K/uL (0.1-1.3); Absolute Neutrophil 12.9 K/uL (1.8-8.0); Basophils % 0.1 % (0-1.3); Lymphocytes % 8.9 % (15.3-44.8); MCH 23.2 pg (27.0-35.0); MPV 9.8 fL (7.6-11.3); Monocytes % 9.4 % (3.3-12.3); RBC Red Blood Cell Count 3.28 M/uL (3.86-4.86)
[2017-07-07] MEDS ORDERED: ONDANSETRON 4 MG/2 ML VIAL IV PRN (05:13)
[2017-07-07 05:22] LABS: Albumin 2.3 g/dL (3.2-5.5); Bilirubin Total 1.2 mg/dL (0.3-1.2); Protein, Total 4.4 g/dL (6.0-8.3)
[2017-07-07 05:24] LABS: Potassium 5.7 mEq/L (3.6-5.0)
[2017-07-07] MEDS ORDERED: D50W 25 GM/50 ML SYRINGE IV ONE ×6 (05:28→23:24)
--- NOTE | 2017-07-07 05:53 | PN ---
Date of Progress Note: 07/06/2017 Subjective: The patient's shortness of breath has been better. Physical Examination: Vital Signs: When I saw the patient, blood pressure of 110/55, pulse of 55, and afebrile. Chest: Crackles, bilateral bases. Heart: S1 and S2. Regular. Abdomen: Soft and nontender. Extremities: No edema. Laboratory Data: Sodium 138, potassium 4.5, bicarb 32, BUN 69, creatinine 1.6, and calcium 7.9. PTH 161. WBC 10, H and H 6/19.4, and platelets 260. Medications: Current medications the patient is on include; 1.Aldactone. 2.Pantoprazole. 3.Flagyl. 4.Levothyroxine. 5.Lasix 80 b.i.d. 6.Ciprofloxacin. 7.Carvedilol. Assessment And Plan: 1.Acute kidney injury secondary to cardiorenal, still on the wet side. I am going to continue the p atient on diuresing, and we will monitor. 2.Hypokalemia. We will supplement. 3.Gastrointestinal bleed. Transfusion. We will follow up with GI. BATOOL/ABELINO Voice ID: [id number] Report ID: [id number]
[2017-07-07] MEDS: LEVOTHYROXINE SOD 0.125 MG TAB PO SCH (06:00)
[2017-07-07] MEDS ORDERED: D5 0.9 NS 1,000 ML IV SCH ×2 (07:00→14:36)
[2017-07-07] MEDS: HYDRALAZINE HCL 10 MG TABLET PO SCH (08:44)
[2017-07-07] MEDS: SPIRONOLACTONE 25 MG TABLET PO SCH (08:44)
[2017-07-07] MEDS: CARVEDILOL 6.25 MG TAB PO SCH (08:44)
[2017-07-07] MEDS: DULOXETINE 30 MG CAP PO SCH (08:44)
[2017-07-07] MEDS: ROPINIROLE HCL 1 MG TAB PO SCH ×2 (08:45→14:00)
[2017-07-07] MEDS: CETIRIZINE HCL 5 MG TABLET PO SCH (08:45)
[2017-07-07] MEDS: NITROGLYCERIN 0.2 MG/HR (5 MG) PATCH TD SCH (08:45)
--- NOTE | 2017-07-07 09:15 | EKG ---
Test Date: 2017-07-06 Test Time: 21:46:48 Water Server: RT MEASUREMENT RESULTS: Intervals: Rate: 63 UT: 174 QRSD: 148 QT: 504 QTc: 515 [place]: P: -3 UT: 174 QRS: 32 T: 101 INTERPRETIVE STATEMENTS: Normal sinus rhythm Left bundle branch block Abnormal ECG Compared to ECG 07/03/2017 00:55:01 No significant changes Electronically Signed On 07-07-17 09:13:50 CDT by Christiano Niño
[2017-07-07] MEDS: FUROSEMIDE 40 MG/4 ML VIAL IV SCH (09:35)
[2017-07-07] MEDS: CIPROFLOXACIN 400mg IV 400 MG/200 ML BAG IV SCH (09:35)
[2017-07-07 13:09] LABS: Protime INR 2.52
[2017-07-07] MEDS ORDERED: PROPOFOL 200 MG/20 ML VIAL IV ONE (13:39)
[2017-07-07] MEDS ORDERED: LIDOCAINE 1% MPF 5 ML VIAL ONE (13:40)
[2017-07-07] MEDS ORDERED: Ringers Lactate 1,000 ML IV ONE (13:41)
[2017-07-07] MEDS ORDERED: D5LR 1,000 ML IV ONE (13:56)
[2017-07-07] MEDS ORDERED: INSULIN -REGULAR HUMAN 50 UNIT/0.5 ML ML ONE (13:56)
[2017-07-07] MEDS ORDERED: NA CHLORIDE 0.9% 1,000 ML ONE (14:01)
--- NOTE | 2017-07-07 14:23 | P.PN ---
Subjective Date of Service: 07/07/17 Chief Complaint: CHF exacerbation Patient seen and examined at bedside with RN. Chart reviewed. Case discussed with cardiology and nephrology at this time. Pt continues to have BM with blood. Pt also had an episode of hematemesis today as well. H/H had declined overnight and pt got transfused 2 units. Review of Systems 10-point ROS is otherwise unremarkable Physical Examination - Vital Signs Temperature: 97.6 F Blood Pressure: 108/84 Pulse: 70 Respirations: 18 Pulse Ox (%): 97 - Physical Exam General: Alert, In no apparent distress, Cachectic HEENT: Atraumatic Neck: Supple Respiratory: Normal air movement, Crackles/rales Cardiovascular: Regular rate/rhythm, Normal S1 S2 Gastrointestinal: Normal bowel sounds, No tenderness Musculoskeletal: No tenderness Integumentary: No rashes Neurological: Normal speech, Normal tone, Normal affect Lymphatics: No axilla or inguinal lymphadenopathy - Studies Medications List Reviewed: Yes Assessment & Plan - Problems (Diagnosis) (1) GI bleed Current Visit: Yes Status: Acute Plan: GI bleed with BRBPR and Melana noted. -GI consulted. Reccs appreciated. -EGD scheduled for today -S/P 2 units Transfusion -Protonix ggt -No fluids due to CHF with poor EF Qualifiers: GI bleed type/associated pathology: melena Qualified Code(s): K92.1 - Melena (2) Altered mental status Current Visit: Yes Status: Resolved Plan: Resolved now. Pt is currently AAOx 3. Most likely 2.2 to drugs. -Currenltly on IV abx for UTI -Head CT negative Qualifiers: Altered mental status type: delirium Qualified Code(s): R41.0 - Disorientation, unspecified (3) Acute on chronic systolic CHF (congestive heart failure) Onset Date: 07/04/17 Current Visit: Yes Status: Acute Plan: Acute CHF -EF of 21% on ECHO -IV lasix 40 q8h now 80mg BID -Cardiology consulted. Appreciated reccs -Elevated Troponin 2.2 to CHF vs demand ischemia (4) Coronary artery disease Onset Date: 02/25/17 Current Visit: No Status: Chronic Qualifiers: Coronary Disease-Associated Artery/Lesion type: bypass graft, autologous vein Associated angina: without angina Qualified Code(s): I25.810 - Atherosclerosis of coronary artery bypass graft(s) without angina pectoris (5) Hyperlipidemia Current Visit: No Status: Chronic Qualifiers: Hyperlipidemia type: mixed hyperlipidemia Qualified Code(s): E78.2 - Mixed hyperlipidemia (6) Hypertension Current Visit: No Status: Chronic Qualifiers: Hypertension type: essential hypertension Qualified Code(s): I10 - Essential (primary) hypertension (7) Generalized weakness Current Visit: Yes Status: Acute Plan: PT/OT consulted.
[2017-07-07] MEDS ORDERED: EPHEDRINE SULF 50 MG/ML SYR ONE (14:24)
[2017-07-07] MEDS ORDERED: Phenylephrine HCl 10 MG/ML 1 ML VIAL ONE (14:24)
[2017-07-07] MEDS ORDERED: FUROSEMIDE 20 MG/ 2ML VIAL IV ONE (19:00)
--- NOTE | 2017-07-07 19:50 | CON ---
Date of Consultation: 07/06/2017 Reason For Consultation: Possible GI bleeding with acute anemia. History Of Present Illness: Ms. Burnette is a 76-year-old female, who has a very complicated medical h istory. She was originally admitted on the or when she presented with deranged mental stat us thought to be due to opioid use. She has chronic pain syndrome and congestive heart failure. In addition to that, she has history of congestive coronary artery disease, and probably has a non-ST el evated MT. Yesterday, she started complaining of passage of dark tarry stool and her hemoglobin, hem atocrit has been going down. Previous to that she suffered acute renal injury for which she is under renal care also. She has been on anti-platelet medications among others. Prior to these, I do not see any history of hematemesis, melena, or hematochezia. The patient is a poor historian, can answer simple questions. She has been also on clonazepam along with other medications. At this time, she also complains that she has some abdominal pain which is ill described. She cannot say what exacerba reynaldo her or what alleviates the pain. I am not sure about the radiation. Past Medical History: As elaborated above in addition to the diabetes. Chronic opioid use. Past Surgical History: Unknown. Family History: Unknown. Social History: No use of alcohol or tobacco, but uses prescription pain pill. Psych History: Other than mental status change, others are unknown to me. Review of Systems: At this time, due to patient's condition, she cannot give full review of system but what I can unders tand she also denies any shortness of breath, although she is having somewhat labored breathing. Physical Examination: General: Elderly female with multiple bruises that is apparent, opens and shuts her eyes. She appea rs to be somnolent. Hemodynamic parameter within normal range. Respiratory, she is somewhat tachypn eic. HEENT. Atraumatic, normocephalic. Bitemporal wasting. Facial wasting. Significant pallor no nikkie. No icterus noted. Oropharyngeal area is dry. Neck: Shows evidence of wasting. Trachea central in position. No lymphadenopathy noted. Chest: Poor air exchange bilaterally. S1-S2 is irregular and accentuated. Abdomen: Soft. Some amount of tenderness in the epigastric, however, no rebound tenderness. Bowel sounds are present. No hepatomegaly. No splenomegaly. No succussion splash. Extremities: Upper and lower extremities have symmetrical wasting. Profuse amount of bruise. Dermatologic: Perfuse bruises on the exposed surface, loss of subcutaneous pad of fat. Neurologic: She is alert and oriented x2. She has a spontaneously moving her extremities. Details of the examination to be on the scope. Diagnostic Data: Reviewed and analyzed. Hemoglobin and hematocrit are showing a downward trend. La st INR was 1.20. BUN, creatinine are elevated consistent with acute kidney injury. Impression/plan/recommendation: Ms. Burnette is a 76-year-old female with acute anemia, gastrointestin al bleeding. Multiple medical problems including history of congestive heart failure, hypertension, diabetes, myocardial infarction, coronary artery disease, acute renal injury, likely dehydration. Sh e also has mental status change, still appears to be somnolent. However given the above condition of gastrointestinal bleeding mainly in the form of melena, the main differential diagnosis in this case will be upper gastrointestinal bleeding including peptic ulcer d isease, erosive esophagitis gastritis, angiodysplasia with bleeding, although lower gastrointestinal conditions including colorectal neoplasia can cause similar situation. Immediate plan in this case is her stabilization and starting her on Protonix drip, frequent monitori ng of hemoglobin and hematocrit and transfuse as needed. Definitive way to address this will be an upper GI endoscopy first. I have had a discussion with her regarding the indications, contraindications, possible complications , alternatives including complications of anesthesia, rare fatalities. She is a high risk. ASA clas sification 4. She appears to have the insight and understanding ability. JUNIOR/ABELINO Voice ID: [id number] Report ID: [id number]
--- NOTE | 2017-07-07 19:56 | OP ---
Date of Procedure: 07/07/2017 Surgeon: Yariel Grigsby MD Procedures Performed: 1.Esophagogastroduodenoscopy. 2.Control of hemorrhage or hemostasis. 3.Ablation of bleeding angiodysplasia versus erosion by using duodenal set above argon plasma coagul ation. 4.Administration of anesthesia by Department of Anesthesia personnel. Indication: GI bleeding. See my consult. Premedication: Per anesthesia. Complexity: Very complex procedure by very nature. Tolerance Of Sedation: Excellent. Procedure In Detail: The procedure, possible complications, alternatives including, but not limited to the possibility of bleeding, perforation, tear, infection, sepsis, need for surgery blood transfus ion, anesthesia related problem including rare fatalities discussed with the patient. Informed conse nt was obtained. She was placed in left lateral position. After appropriate level of anesthesia, a scope was inserted. Esophageal mucosa in the proximal, mid, and distal aspect appeared to be within normal range. However, as soon as the stomach was entered perfuse amount of fresh blood and clotted blood noted. This made the visualization very suboptimal. The scope channel repeatedly got blocked because of the clot. Duodenal bulb was full of clot. I was able to wash it off, and duodenal angle was very deformed. Du odenal part 2 only bird eye view could be obtained. Appears to be deformed, and there is a polyp. H owever right prior to this, there is a large area of angiodysplasia versus erosion that was actively bleeding due to active bleeding. Complete visualization is impossible to obtain. However, having lo calized this area first 1:10,000 epinephrine was injected. After this, bleeding slowed down and the area was systematically ablated as well as hemostasis completely achieved by using argon plasma coagu lation. Having done the above procedure up to this level in safe, diligent, and satisfactory manner, endoscop e and rest of the endoscopic accessories were removed. The patient's oropharyngeal area cleaned out in a respectful manner. The patient has been sent in excellent condition back to ICU. Impression: 1.Bleeding angiodysplasia versus large erosions. 2.Deformed duodenal. 3.Suboptimal visualization due to perfuse amount of blood and clot. Plan: 1.Case was immediately discussed with Dr. Palmer. 2.Surgical consultation. 3.IV Protonix drip. 4.Transfuse 2 units of blood as soon as possible. After that, frequent hemoglobin, hematocrit q.4 h ours and transfuse as needed. 5.Eventually she will need second-look EGD in the best case scenario, to rule out other lesions or o ther concomitant lesions. 6.Stop all the anticoagulation if possible at all since her immediate threat to life is bleeding. Complications: None immediately. The patient tolerated the procedure well. Disposition: Back to ICU. JUNIOR/ABELINO Voice ID: [id number] Report ID: [id number]
--- NOTE | 2017-07-07 21:20 | RAD REPORT ---
EXAM DESCRIPTION: RAD - Chest Single View - 07/07/2017 9:10 pm CLINICAL HISTORY: PICC line placement. COMPARISON: None. FINDINGS: Portable chest was obtained following placement of a right upper extremity PICC line. The catheter tip is in the SVC.
[2017-07-07] MEDS ORDERED: D50W 25 GM/50 ML SYRINGE IV STA (21:30)
[2017-07-07] MEDS ORDERED: NA CHLORIDE 0.9% 100 ML ONE (21:30)
--- NOTE | 2017-07-07 21:41 | CON ---
Date of Consultation: 07/07/2017 Hpi: The patient is a 76-year-old woman, history of CAD status post CABG, chronic systolic CHF with an ejection fraction last recorded was 21%, chronic pain on opioid medication, who came to the emergency room on 07/03 with complaint of a possible swelling in her lower extremities. She was confused and had a possible CHF exacerbation at that time. She was admitted the hospital. Her son a ccompanied at that time, who was a medical power of patent prosecution attorney and she was brought in. Ultimately, her workup included consultations from Dr. Niño as well as Dr. Bonilla, who ultimately saw th e patient. The patient's determination was made, I should say that the patient needed an EGD, which was performed by Dr. Grigsby. I spoke with Dr. Grigsby regarding this and he said he found a large AV malf ormation in the first/second portion of the duodenum and this was an a difficult angle. However, he was able to inject epinephrine and achieve hemostasis at this time with both combination of epinephri ne and APC (argon plasma coagulation) with good hemostasis. He requested surgical consult as backup as he has indicated this. He has concern for a recurrent bleed in this area. The patient had a hemo globin which dropped from 8 on 07/06 to 6 on 07/06 and 7.6 on 07/07 necessitating an EGD as described above. Past Medical History: Significant for CHF with an EF of approximately 21%, CAD, neuropathy, restless legs syndrome, dementia. She also has peripheral neuropathy, anxiety, depression, CKD stage 3, dyslipidemia, hypothyroidism, p eripheral vascular disease. Past Surgical History: Coronary artery bypass graft 2 times, femoral bypass of the right leg. She h as had SFA stents before in the past as well. I am unable to obtain history from patient as the majority is obtained from the chart. The patient i s verbal, however, is confused during my assessment and discussion with her. Social History: Unable to obtain. Home Medications: Included Coreg, Plavix, Neurontin, Synthroid, simvastatin, spironolactone, Klonopi n, Cymbalta, furosemide, Xyzal, lisinopril, , Requip. Allergies: TO MORPHINE WHICH CAUSES SHORTNESS OF BREATH. Review of Systems: Unable to obtain. Physical Examination: Vital Signs: At the time examination her vital signs were BMI of 22.2. Her blood pressure 108/84, p ulse is 70, respiratory rate 18, temperature 97.6. She is currently in the ICU during my examination . General: She is awake and alert, however, she is conversive. She is in no apparent distress. Psychiatric: She is confused and answers questions. She has some insight into her medical history, but is a poor historian otherwise and appears confused generally. HEENT: Otherwise she has some dry mucous membranes. Neck: Supple. No JVD. Chest: Decreased expansion and excursion. Abdomen: Soft with minimal tenderness to palpation on deep palpation only. Extremities: She has bruising over all 4 extremities. Laboratory Data: Reveals a white blood cell count of 15.8, hemoglobin was last checked 7.6 over darren tocrit 25.0, platelet count is 189. Her neutrophils are 81%. Her PT is 30, INR 2.52, PTT 32.5. Her sodium 143, potassium 5.7, chloride 103, carbon dioxide 20, BUN is 78, creatinine 2.27. Her glucose is 39 on the last check and it was rechecked at 84. Calcium 7.9, magnesium 2.0. Her AST is 455, AL T 382, alkaline phosphatase is 53. The EGD as described above. She had a head CT performed as well, which was officially read as no acute intracranial abnormality. She had a chest x-ray performed and a renal ultrasound as well. Chest x-ray, mild progression of left pulmonary opacities since compara tive study I should say. This may represent developing and superimposed pneumonia infiltrate or seco ndary to asymmetric pulmonary edema. She had a renal ultrasound performed on 07/04, which was offici ally read as unremarkable renal sonography. Assessment And Plan: This is a 76-year-old female who comes in with an obvious bleeding AV malformat ion causing acute blood-loss anemia. 1.I will follow along with you regarding this should the patient have another bleeding episode, retu rn to the endoscopy suite to achieve hemostasis would be another option. However, should this be uns uccessful, I will consider surgical intervention should this become necessary based on the clinical p icture. 2.I recommend transfusing the patient with PRBCs, FFP, and platelets as well as cryo based on her fi brinogen level. She is coagulopathic and therefore, I feel this would be necessary to give her, villafuerte augusta I recommend giving this in judicious manner intermixed with Lasix to ensure that we diurese this large volume. We will be giving her to ensure we do not create an overload situation and worsen the congestive heart failure. 3.Electrolyte correction per Dr. Bonilla. 4.Continue medical management. I will follow along with you. Thank you for this interesting consult. HOWARD/JESUSL Voice ID: [id number] Report ID: [id number]
[2017-07-07 22:09] LABS: Absolute Lymphocytes (CBC) 2.9 K/uL (0.7-4.9); Absolute Monocytes 2.2 K/uL (0.1-1.3); Absolute Neutrophil 23.9 K/uL (1.8-8.0); Basophils % 0.1 % (0-1.3); Hematocrit 26.6 % (36.0-45.0); Lymphocytes % 10.1 % (15.3-44.8); MCH 25.9 pg (27.0-35.0); MCV 82.7 fL (80-100); MPV 10.7 fL (7.6-11.3); Monocytes % 7.7 % (3.3-12.3); RBC Red Blood Cell Count 3.21 M/uL (3.86-4.86)
[2017-07-07] MEDS ORDERED: DEXTROSE 10%-WATER 500 ML IV ONE (22:15)
[2017-07-07 22:27] LABS: Absolute Monocytes 1.2 K/uL (0.1-1.3); Absolute Neutrophil 14.3 K/uL (1.8-8.0); Basophils % 0.1 % (0-1.3); Eosinophils % 0.1 % (0-4.4); Lymphocytes % 20.4 % (15.3-44.8); MCH 25.5 pg (27.0-35.0); MCV 90.8 fL (80-100); MPV 9.8 fL (7.6-11.3); RBC Red Blood Cell Count 2.24 M/uL (3.86-4.86)
[2017-07-07 22:31] LABS: Hematocrit 20.4 % (36.0-45.0)
[2017-07-07] MEDS ORDERED: EPINEPHrine 1 MG/10 ML SYR ONE (22:36)
[2017-07-07 22:40] LABS: Arterial Blood Carboxyhemoglob 1.8 % (0-1.5)
[2017-07-07 22:42] LABS: Blood O2 Saturation 99.4 % (92-98.5)
[2017-07-07 23:00] LABS: Protime INR 3.8
[2017-07-07 23:31] LABS: Blood Morphology Comment NOTED (NOT SEEN); Platelet Estimate DECR
[2017-07-07 23:36] LABS: Anisocytosis 3+; Polychromasia 1+
[2017-07-07 23:38] LABS: Target Cells 2+
[2017-07-07 23:44] LABS: Albumin 1.5 g/dL (3.2-5.5); Alkaline Phosphatase 44 IU/L (42-121); BUN Blood Urea Nitrogen 86 mg/dL (6-20); Bicarbonate 18 mEq/L (21-31); Bilirubin Total 1.5 mg/dL (0.3-1.2); Glucose Level 186 mg/dL (65-120); Protein, Total < 3.0 g/dL (6.0-8.3); Sodium Level 142 mEq/L (135-145)
[2017-07-07 23:47] LABS: AST/SGOT 662 IU/L (10-42); Potassium 6.4 mEq/L (3.6-5.0)
[2017-07-07 23:48] LABS: ALT/SGPT 491 IU/L (10-60); CKMB Creatine Kinase MB 111.1 ng/ml (0.3-4.0); Creatine Phosphokinase 2895 IU/L (22-269)
[2017-07-08] MEDS ORDERED: AMIODARONE HCL 150 MG/3 ML INJ IV ONE (02:26)
[2017-07-08] MEDS ORDERED: MAGNESIUM SULF 1GM/2ML VIAL IV ONE (02:26)
[2017-07-08] MEDS ORDERED: Caclcium Chloride 10% INJ SYR IV ONE (02:26)
[2017-07-08] MEDS ORDERED: DOPAMINE 400 MG/250ML D5W PREMIX IV ONE (02:26)
[2017-07-08] MEDS ORDERED: EPINEPHRINE 1 MG/ML VIAL IV ONE (02:26)
[2017-07-08] MEDS ORDERED: ATROPINE SULF 1 MG/10 ML SYR IV ONE (02:26)
--- NOTE | 2017-07-08 02:35 | PN ---
Date of Progress Note: 07/07/2017 Chief Complaint: Acute kidney injury. History Of Present Illness: Acute kidney injury, moderately severe, nonoliguric. Renal function has declined over the last 24 hours. Urine output has not improved. The patient was found to have hyperkalemia, potassium level today is 5.7, and the patient was treated for hyperkalemia, subsequently potassium improved to 4.2. BUN today is 78 and creatinine level is 2.27. Yesterday, creatinine was 1.66. The patient remains somewhat confused, although she is responding to questions. Review of Systems: Unobtainable. The patient is confused, cannot provide review of systems. Physical Examination: Lungs: Few crackles at bases. Heart: S1 and S2. Abdomen: Soft, benign. Extremities: Slight ankle edema. Impression And Plan: 1. Acute kidney injury secondary to cardiorenal syndrome. The patient has some fluid overload. The patient is to continue diuretics. 2. Hyperkalemia. The patient was treated for hyperkalemia. Potassium level has improved. 3. Gastrointestinal bleeding. The patient received transfusion. 4. The patient had EGD today. The patient was transferred to ICU after transfusion. Renal function has declined over the last 24 hours. Plan is to reevaluate electrolytes, renal panel, and continue to monitor strictly urine output. The patient may although require dialysis for metabolic clearance and to control hypervolemia. i spent total 36 min including 25 min to coordinate care plan. MARI/ABELINO Voice ID: [id number] Report ID: [id number] STAN
--- NOTE | 2017-07-08 05:22 | P.PN ---
Date of Service: 07/07/17 I was called because the patient has decreased the level of conscious. Checked BS was < 20, She received 1 amp of D50. Subsequently she showed minimal signs of improvement. At about 21:40 she had sustained VTACH episode. Advance ACLS protocol started. After about 30 minutes of CPR, the patietn regained pulse. She received seveal D50 amps more due to persistent hypoglycemia. Finally she had another cardiac arrest episode, but at this time she did not responded to resuscitation protocol, and about 2302 was pronounced .
--- NOTE | 2017-08-19 19:59 | P.DS ---
Admission Date: 07/04/17 Discharge Date: 08/19/17 Disposition: Discharge Condition: Reason for Admission: CHF exacerbation - Problems (1) Acute on chronic systolic CHF (congestive heart failure) Onset Date: 07/04/17 Status: Acute (2) Chronic pain syndrome Onset Date: 02/25/17 Status: Acute (3) Coronary artery disease Onset Date: 02/25/17 Status: Chronic Qualifiers: Coronary Disease-Associated Artery/Lesion type: bypass graft, autologous vein Associated angina: without angina Qualified Code(s): I25.810 - Atherosclerosis of coronary artery bypass graft(s) without angina pectoris (4) PAD (peripheral artery disease) Onset Date: 07/04/17 Status: Acute Brief History of Present Illness: Ms Burnette is a 76 years old woman with history of CAD, s/p CABG, chronic systolic CHF, last ECHO recorder here shows EF 21%, chronic pain syndrome, on opioid medications, who came to ED complaining of LE extremity swelling and pain. She is confused and not able to provide a coherent history. The patient denied chest pain. She came to the hospital with a couple who apparently live with her. Her son came to ED as well, who is the POA, and he said that the patient is confuse and has hallucinations because the medication she is, specially opioids. Initially she singed AMA form to go home, but she was very confused, and finally decided to stay. Hospital Course: Ms Burnette was admitted to the hospital due to AMS. During her stay she become anemic, due to acute blood loss episode from a GIB. The patient requir several units of PRBC's transfuion. She had an EGD showing active bleeding from duodenal erosion vs angiodysplasia. The patient renal function then was decreasing, until the point that she needed HD. The patient hospital course was poor. On 07/07/17, she become hypoglycemic, requiring several amps of D50% to keep her BS within normal limits, no clear etiology. Subsequently, about 21:40, she had an episode of sustained VTACH. She become unresponsive and pulseless. Advance ACLS protocol was started. After about 30 minutes of CPR, the patient regained pulse. However, shortly, she had another cardiac arrest episode, but at this time she did not responded to resuscitation protocol, and was pronounced at 23:02 of 07/07/17. Vital Signs/Physical Exam: Temp Pulse Resp BP Pulse Ox 98.4 F 67 19 115/49 L 97 07/07/17 20:00 07/07/17 21:00 07/07/17 21:00 07/07/17 20:00 07/07/17 14:23 Laboratory Data at Discharge: WBC 19.6 K/uL (4.3-10.9) H D 07/07/17 22:12 Hgb 5.7 g/dL (12.0-15.0) L* D 07/07/17 22:12 Hct 20.4 % (36.0-45.0) L* D 07/07/17 22:12 Plt Count 43 K/uL (152-406) L* D 07/07/17 22:12 PT 45.4 SECONDS (9.5-12.5) H 07/07/17 22:05 INR 3.80 07/07/17 22:05 APTT 47.7 SECONDS (24.3-36.9) H 07/07/17 22:05 Sodium 142 mEq/L (135-145) 07/07/17 22:50 Potassium 6.4 mEq/L (3.6-5.0) H* D 07/07/17 22:50 BUN 86 mg/dL (6-20) H 07/07/17 22:50 Creatinine 2.63 mg/dL (0.44-1.00) H 07/07/17 22:50 Glucose 186 mg/dL (65-120) H 07/07/17 22:50 Phosphorus 2.7 mg/dL (2.5-4.3) 07/06/17 04:47 Magnesium 2.0 mg/dL (1.8-2.5) 07/07/17 04:34 Total Bilirubin 1.5 mg/dL (0.3-1.2) H 07/07/17 22:50 AST 662 IU/L (10-42) H* D 07/07/17 22:50 ALT 491 IU/L (10-60) H* D 07/07/17 22:50 Alkaline Phosphatase 44 IU/L (42-121) 07/07/17 22:50 Troponin I 11.97 ng/mL (<0.03) H* 07/07/17 22:12 B-Natriuretic Peptide > 3500 pg/ml (<=100) H 07/04/17 11:15 Home Medications: Carvedilol [Coreg] 3.125 mg PO BID 03/28/17 Clopidogrel Bisulfate [Plavix*] 1 tab PO DAILY 03/28/17 Gabapentin [Neurontin] 400 mg PO TID 03/28/17 Levothyroxine [Synthroid] 125 mcg PO DAILY 03/28/17 Simvastatin 40 mg PO DAILY 03/28/17 Spironolactone 50 mg PO DAILY 03/28/17 Clonazepam [Klonopin] 0.5 mg PO BEDTIME 06/06/17 Duloxetine [Cymbalta Dalayed Release Pellets] 60 mg PO DAILY 06/06/17 Levocetirizine Dihydrochloride [Xyzal] 5 mg PO DAILY 06/06/17 Lisinopril 40 mg PO DAILY 06/06/17 Oxycodone HCl [Oxyir] 20 mg PO Q12H 06/06/17 Ropinirole HCl [Requip] 1 mg PO TID 06/06/17 Furosemide 80 mg PO DAILY 07/03/17
== END 2017-07-08 02:27 | disposition expired | DRG 291 ==
LOC: ER 00:06 → ERHOLD 01:38 → 2ND 02:47 → OBSVTOIN 07-04 11:20 → 2ND 07-04 17:31 → 3RD-ICU 07-07 15:40
PROVIDERS: ADMIT Family Medicine; ATTEND Family Medicine
PROC: 02HV33Z Insertion of Infusion Device into Superior Vena Cava, Percutaneous Approach (ICD-10-PCS; 2017-07-07)
PROC: 0W3P8ZZ Control Bleeding in Gastrointestinal Tract, Via Natural or Artificial Opening Endoscopic (ICD-10-PCS; principal; 2017-07-07 10:00)
DX: I50.23 Acute on chronic systolic (congestive) heart failure (principal); K31.811 Angiodysplasia of stomach and duodenum with bleeding; N17.9 Acute kidney failure, unspecified; D62 Acute posthemorrhagic anemia; K31.7 Polyp of stomach and duodenum; D64.9 Anemia, unspecified; I27.20 Pulmonary hypertension, unspecified; E87.6 Hypokalemia; I73.9 Peripheral vascular disease, unspecified; G89.4 Chronic pain syndrome; I25.10 Atherosclerotic heart disease of native coronary artery without angina pectoris; E03.9 Hypothyroidism, unspecified; E78.5 Hyperlipidemia, unspecified; G25.81 Restless legs syndrome; F41.8 Other specified anxiety disorders
CPT/HCPCS: 36415; 70450; 71045; 76770; 80048; 80053; 80069; 80307; 81003; 81015; 82274; 82550; 82553; 82607; 82728; 82746; 82805; 82962; 83540; 83735; 83880; 83970; 84132; 84146; 84443; 84466; 84484; 85025; 85044; 85384; 85610; 85730; 86850; 86900; 86901; 86922; 87086; 87088; 93005; 94002; 94760; 96372; 97163; 99285; C9113; G0378; J0171; J0282; J0696; J0744; J1265; J1630; J1650; J1940; J2370; J2405; J3475; J7030; P9016; P9035